=== PATIENT | male | born 1965 | race Caucasian/White ===

== ENCOUNTER 2024-07-21 04:47 | Observation (INO) ==
[2024-07-21] MEDS: fentaNYL citrate PF 100 MCG/2 ML VIAL IV STA (05:11)
--- NOTE | 2024-07-21 05:23 | Emergency Department Note ---
History of Present Illness General Chief complaint: Abdominal Pain Stated complaint: ABD PAIN Time Seen by Provider: 07/21/24 04:56 History of Present Illness Maximum Pain Intensity: 10 This 59-year-old male with alcoholism and hepatitis C presents ER complaining of severe mid abdominal pain he was diaphoretic and hypotensive. I was called to the room to see the patient. Patient is doubled over crying in pain. Patient states he drank alcohol last night. No history of withdrawal or seizures from not drinking. Patient denies fever, chills, cough, congestion, chest pain, dyspnea. No drug use. Home Medications Medication Instructions Recorded Confirmed Type multivitamin 1 tab PO QAM 09/03/18 07/21/24 History omega 3-spf-dti-fish oil 1,200 mg 1 cap PO QAM 09/03/18 07/21/24 History (144 mg-216 mg) capsule doxylamine succinate 25 mg tablet 25 mg PO HS PRN Sleep 09/30/21 07/21/24 History (Unisom (doxylamine)) melatonin 3 mg tablet 0 mg PO HS PRN Sleep 09/30/21 07/21/24 History metoprolol succinate 50 mg 50 mg PO QAM #30 tabs 09/30/21 07/21/24 Rx tablet,extended release 24 hr gabapentin 100 mg capsule 200 mg PO BID 03/09/23 07/21/24 History nortriptyline 50 mg capsule 50 mg PO HS 03/09/23 07/21/24 History rosuvastatin 10 mg tablet 20 mg PO DAILY 03/09/23 07/21/24 History Allergies Allergy/AdvReac Type Severity Reaction Status Date / Time tetracycline Allergy Unknown unknown Verified 03/09/23 14:16 Past Med/Surg History Problem List DVT prophylaxis Depression History of gastric ulcer Abnormal CT scan, colon Gallstones Tobacco dependence Abdominal pain, acute (Acute) Acute lactic acidosis (Acute) Neuropathy HTN (hypertension) GERD (gastroesophageal reflux disease) Alcohol abuse Paresthesias Colon cancer screening Encounter for pre-operative examination Medical History Hepatitis C diagnosed in 1986; no longer has Alcoholism Gastritis Alcohol withdrawal Kidney stones GERD (gastroesophageal reflux disease) Idiopathic thrombocytopenia hx of, not currently Hypertension Surgical History History of colonoscopy History of esophagogastroduodenoscopy (EGD) History of inguinal hernia repair, bilateral History of tooth extraction wisdom teeth Family History Family/Other Family history of diabetes mellitus maternal uncle Grandmother Family hx of colon cancer maternal Mother COPD (chronic obstructive pulmonary disease) Brother Bipolar disorder Brother Coronary heart disease Social History Smoking Status: Current every day smoker Tobacco Type: Cigarettes Cigarettes Per Day: 7 a day; Second Hand Exposure: No; Do You Dip or Chew Tobacco: No; Tobacco Cessation Education Requested by Patient: No Hx Alcohol Use: Yes Alcohol type: beer and wine Alcohol Intake Frequency: 4 or More x per/Week Hx Substance Use: No Preferred Language: Lao Communication Ability: Effective Graduate Research Assistant Required: No Beliefs That Will Affect Care: None marital status: Single Current Living Situation: Family Current Living Situation Comment: lives with mother current occupational status: unemployed How many Children do You have: 0 Other Information That Helps Us Care for You: No Feels Safe at Home: Yes Safety Concerns: Feels Safe At This Time Assistive Devices: Denture - Upper, Denture - Lower and Glasses Review of Systems A total of 10 systems reviewed and were otherwise negative Physical Exam Vital Signs Vital Signs - 24 hr 07/21/24 04:48 07/21/24 05:08 07/21/24 05:36 Temperature 36.4 C L Temperature Source Oral Pulse Rate 65 53 L 57 L Pulse Rate from SpO2 Sensor 57 L Pulse Rhythm Regular Pulse Strength Normal Respiratory Rate 22 12 Respiratory Effort / Characteristics Non-Labored Spontaneous Respiratory Depth Normal Respiratory Pattern Regular Blood Pressure 105/47 L 134/78 Blood Pressure Mean 66 96 Blood Pressure Position Sitting Pulse Oximetry 97 100 Oxygen Delivery Method Room Air Room Air Sepsis Recent Fever Within 48 Hours No Sepsis New/Unexplained Change in Mental Status N/A Sepsis Action Taken by Nursing No Action Required VITALS: Vitals are noted on the nurse's note and reviewed by myself. Vital signs hypotensive. GENERAL: White male pale diaphoretic screaming in pain doubled over, diaphoretic, EtOH odor SKIN: The skin was without rashes, erythema, edema, or bruising. There is no tenting of the skin. Capillary reflex less than 2 seconds. HEAD: Normocephalic atraumatic. EARS: External auditory canals clear EYES: Pupils equal round and reactive to light and accommodation. Conjunctivae without injection, sclerae without icterus. Extraocular movements intact. NOSE: Patent, no discharge. MOUTH: Mucous membranes moist. Pharynx without erythema or exudate. Uvula midline. Airway patent. Tongue does not deviate. NECK: Supple without nuchal rigidity. No lymphadenopathy. No thyromegaly. Cervical spine is nontender. No JVD. HEART: Regular rate and rhythm LUNGS: Clear to auscultation bilaterally without wheezes, rales or rhonchi. No retractions or accessory muscle use. ABDOMEN: Positive bowel sounds x 4. Normal tympanic percussion. Soft, diffuse severe tenderness, without masses or organomegaly. Weeks sign negative. No CVA tenderness MUSCULOSKELETAL: No muscle atrophy, erythema, or edema noted. NEURO: Patient was alert and oriented to person place and time. Normal sensation to light and sharp touch. No focal neurological deficits. Course Administered Medications Hydromorphone HCl (Hydromorphone Inj 0.5 Mg/0.5 Ml Syr) 0.5 mg IV Q3H PRN PRN Reason: Pain Stop: 08/04/24 09:21 Last Admin: 07/21/24 19:40 Dose: 0.5 mg Documented By: Admin: 07/21/24 15:19 Dose: 0.5 mg Documented By: Admin: 07/21/24 10:39 Dose: 0.5 mg Documented By: DENEEN Potassium Chloride 20 meq/ (Lactated Ringer's) 1,010 mls @ 125 mls/hr IV .Q8H5M [facility] Stop: 08/20/24 09:44 Last Admin: 07/21/24 19:39 Dose: 125 mls/hr Documented By: Infusion: 07/21/24 18:25 Dose: Infused Documented By: Admin: 07/21/24 10:20 Dose: 125 mls/hr Documented By: DENEEN Pantoprazole Sodium 40 mg/ (Syringe) 10 mls @ 5 mls/min IV BID [facility] Stop: 08/20/24 20:59 Last Admin: 07/21/24 21:12 Dose: 5 mls/min Documented By: RAISA Thiamine HCl 200 mg/ Sodium (Chloride) 52 mls @ 210 mls/hr IV BID MINGO Stop: 08/20/24 20:59 Last Infusion: 07/21/24 22:02 Dose: Infused Documented By: Admin: 07/21/24 21:07 Dose: 210 mls/hr Documented By: RAISA Melatonin (Melatonin 3 Mg Tab) 3 mg PO HS [facility] Stop: 08/20/24 20:59 Last Admin: 07/21/24 21:10 Dose: 3 mg Documented By: RAISA Metoprolol Succinate (Metoprolol Succ 50mg Ext Rel Tab) 50 mg PO QAM [facility] Stop: 08/20/24 09:44 Last Admin: 07/21/24 10:28 Dose: Not Given Documented By: DENEEN Miscellaneous (Remove Nicoderm Patch) 1 each N/A DAILY@0859 [facility] Stop: 08/20/24 09:43 Last Admin: 07/21/24 10:28 Dose: Not Given Documented By: DENEEN Multivitamins (Multivitamin Tab) [facility] Stop: 08/20/24 09:44 Last Admin: 07/21/24 10:28 Dose: 1 tab Documented By: DENEEN Nicotine (Nicotine 14 Mg/24 Hr Patch) 1 patch TD [facility] Stop: 08/20/24 09:44 Last Admin: 07/21/24 10:27 Dose: 1 patch Documented By: DENEEN Nortriptyline HCl (Nortriptyline Hcl 25 Mg Cap) 50 mg PO [facility] Stop: 08/20/24 20:59 Last Admin: 07/21/24 21:10 Dose: 50 mg Documented By: RAISA Discontinued Medications Al Hydrox/Mg Hydrox/Simethicone (Aluminum/Magnesium Susp 30 Ml Udc) 30 ml PO NOW STA Stop: 07/21/24 08:02 Last Admin: 07/21/24 08:28 Dose: 30 ml Documented By: DENEEN Fentanyl Citrate (Fentanyl Citrate Pf 100 Mcg/2 Ml Vial) 50 mcg IV NOW STA Stop: 07/21/24 05:06 Last Admin: 07/21/24 05:11 Dose: 50 mcg Documented By: MISHA Fentanyl Citrate (Fentanyl Citrate Pf 100 Mcg/2 Ml Vial) 50 mcg IV Q15M PRN PRN Reason: Pain Stop: 08/04/24 05:06 Last Admin: 07/21/24 07:31 Dose: 50 mcg Documented By: Admin: 07/21/24 06:08 Dose: 50 mcg Documented By: MISHA Gabapentin (Gabapentin 600 Mg Tab) 1,200 mg PO NOW ONE Stop: 07/21/24 10:01 Last Admin: 07/21/24 10:28 Dose: 1,200 mg Documented By: DENEEN Gabapentin (Gabapentin 600 Mg Tab) 600 mg PO Q6H [facility] Stop: 07/21/24 22:01 Last Admin: 07/21/24 21:10 Dose: 600 mg Documented By: Admin: 07/21/24 16:52 Dose: 600 mg Documented By: IGOR Pantoprazole Sodium 40 mg/ (Syringe) 10 mls @ 5 mls/min IV NOW ONE Stop: 07/21/24 05:08 Last Admin: 07/21/24 06:11 Dose: 5 mls/min Documented By: MISHA Famotidine (Pepcid 20mg Iv Push) 20 mg in 5 mls @ 2.5 mls/min IV NOW STA Stop: 07/21/24 05:08 Last Admin: 07/21/24 05:34 Dose: 2.5 mls/min Documented By: MISHA Sodium Chloride (Nss) 1,000 mls @ 999 mls/hr IV .Q1H1M ONE Stop: 07/21/24 06:07 Last Infusion: 07/21/24 06:23 Dose: Infused Documented By: Admin: 07/21/24 05:34 Dose: 999 mls/hr Documented By: MISHA Lactated Ringer's (Lr) 1,000 mls @ 999 mls/hr IV .Q1H1M ONE Stop: 07/21/24 06:07 Last Infusion: 07/21/24 06:23 Dose: Infused Documented By: Admin: 07/21/24 05:35 Dose: 999 mls/hr Documented By: MISHA Multivitamins 10 ml/ Thiamine HCl 100 mg/ Folic Acid 1 mg/Sodium Chloride 1,011.2 mls @ 500 mls/hr IV .Q2H2M ONE Stop: 07/21/24 07:08 Last Infusion: 07/21/24 08:46 Dose: Infused Documented By: Admin: 07/21/24 06:12 Dose: 500 mls/hr Documented By: MISHA Potassium Chloride (K Navin / Wtr) 10 meq in 100 mls @ 100 mls/hr IV Q1H [facility] Stop: 07/21/24 09:44 Last Infusion: 07/21/24 10:55 Dose: Infused Documented By: Admin: 07/21/24 09:43 Dose: 100 mls/hr Documented By: Infusion: 07/21/24 09:29 Dose: Infused Documented By: Admin: 07/21/24 08:29 Dose: 100 mls/hr Documented By: Infusion: 07/21/24 08:29 Dose: Infused Documented By: Admin: 07/21/24 07:32 Dose: 100 mls/hr Documented By: Infusion: 07/21/24 07:12 Dose: Infused Documented By: Admin: 07/21/24 06:12 Dose: 100 mls/hr Documented By: MISHA Ioversol (Optiray 320 125ml) 119 ml IV ONCE ONE Stop: 07/21/24 05:39 Last Admin: 07/21/24 05:38 Dose: 119 ml Documented By: SANDY Ondansetron HCl (Ondansetron Inj 2 Mg/Ml 2 Ml Vial) 4 mg IV NOW STA Stop: 07/21/24 05:08 Last Admin: 07/21/24 05:35 Dose: 4 mg Documented By: MISHA Medical Decision Making Medical Records Attestation: I reviewed the patient's medical records. Home Medications Current Medication List: was personally reviewed by sc Laboratory Data Attestation: I reviewed the patient's lab results. 07/21/24 05:07 07/21/24 14:10 Lab Results 07/21/24 Range/Units 05:07 WBC 9.17 (4.8-10.8) K/ul RBC 4.51 L (4.70-6.10) M/uL Hgb 14.0 (14.0-18.0) g/dl Hct 40.7 L (42.0-52.0) % MCV 90.2 (80.0-100.0) fL MCH 31.0 (25.0-34.0) pg MCHC 34.4 (32.0-36.0) g/dL RDW Std Deviation 39.2 (36.4-46.3) fL RDW Coeff of Augustus 11.9 (11.5-14.5) % Plt Count 260 (130-400) K/uL MPV 8.5 L (9.4-12.4) fL Immature Gran % (Auto) 0.3 % Neut % (Auto) 23.7 % Lymph % (Auto) 61.0 % Amite % (Auto) 11.6 % Eos % (Auto) 2.5 % Baso % (Auto) 0.9 % Neut # (Auto) 2.18 (1.40-6.50) K/uL Lymph # (Auto) 5.59 H (1.20-3.40) K/uL [place] # (Auto) 1.06 H (0.11-0.59) K/uL Eos # (Auto) 0.23 (0.00-0.50) K/uL Baso # (Auto) 0.08 (0.00-0.20) K/uL Immature Gran # (Auto) 0.03 (0.01-0.20) K/uL Sodium 137 (136-145) mmol/L Potassium 3.1 L (3.5-5.1) mmol/L Chloride 102 (98-107) mmol/L Carbon Dioxide 20 L (21-32) mmol/L Anion Gap 15 H (3-11) BUN 16 (6-23) mg/dl Creatinine 0.82 (0.6-1.4) mg/dl Est Cr Clr Drug Dosing 81.2 ml/min Est GFR ( Amer) 112.2 ml/min Est GFR (Non-Af Amer) 96.8 ml/min BUN/Creatinine Ratio 19.5 (10-20) Glucose 140 H (70-99(Fasting)) mg/dl Lactate 4.9 H* (0.4-2.0) mmol/L Calcium 9.6 (8.6-10.3) mg/dl Magnesium 2.0 (1.7-2.4) mg/dl Total Bilirubin 0.3 (0.2-1.0) mg/dl AST 49 H (13-39) U/L ALT 46 (7-52) U/L Alkaline Phosphatase 70 (34-104) U/L Troponin I High Sens 3.5 (0-20) pg/ml Total Protein 6.9 (6.0-8.3) gm/dl Albumin 4.4 (3.4-5.0) gm/dl Globulin 2.5 (2.5-4.0) gm/dl Albumin/Globulin Ratio 1.8 (0.9-2) Lipase 23 (11-82) U/L Ethyl Alcohol mg/dL 28.9 H (<10.0) mg/dl Imaging Data Attestation: I personally reviewed and interpreted this imaging study as follows: Radiologist's Impression: Abdomen/Pelvis CT 07/21/24 04:57 Exam(s): CT ABDOMEN + PELVIS With Contrast IV Amt: 119 ml opti 320 EXAM: CT Abdomen and Pelvis With Intravenous Contrast CLINICAL HISTORY: Reason for exam: severe mid abd pain, hep C, etoh. TECHNIQUE: Axial computed tomography images of the abdomen and pelvis with intravenous contrast. Automated exposure control was utilized for the study. A dose lowering technique was utilized adhering to the principles of ALARA. CONTRAST: Patient received 119 ml opti 320 of IV contrast COMPARISON: 01/22/2019. FINDINGS: ABDOMEN: Liver: The liver is enlarged and of diffuse decreased attenuation Gallbladder and bile ducts: There are gallstones noted within the gallbladder.. No ductal dilation. Pancreas: No mass. No ductal dilation. Spleen: No splenomegaly. Adrenals: No mass. Kidneys and ureters: . No solid mass. No hydronephrosis. Stomach and bowel: There is air and fluid within the stomach. There is air, fluid and stool noted in the colon.. There appears to be thickening of the wall of the proximal ascending colon PELVIS: Appendix: No findings to suggest acute appendicitis. Bladder: No Calculi are noted within the bladder. Reproductive: Unremarkable as visualized. ABDOMEN and PELVIS: Intraperitoneal space: No free air. No significant fluid collection. There are postoperative changes in the pelvis. Bones/joints: There are mild degenerative changes in the spine.. Soft tissues: Unremarkable. Vasculature: No abdominal aortic aneurysm. Lymph nodes: . No enlarged lymph nodes. IMPRESSION: There appears to be thickening of the wall of the proximal ascending colon. This may be due to under distention. Cannot exclude colitis. Cholelithiasis. The liver is enlarged and of diffuse decreased attenuation which may be due to fatty infiltration and/or hepatocellular disease. Electronically signed by: Hesham Santos MD 07/21/24 06:13 AM Chest CTA 07/21/24 05:07 Exam(s): CTA CHEST EXAM: CT Angiography Chest With Intravenous Contrast CLINICAL HISTORY: Reason for exam: PE. TECHNIQUE: Axial computed tomographic angiography images of the chest with intravenous contrast. Automated exposure control was utilized for the study. A dose lowering technique was utilized adhering to the principles of ALARA. MIP reconstructed images were created and reviewed. COMPARISON: No relevant prior studies available. FINDINGS: Pulmonary arteries: No pulmonary embolism is seen. Aorta: No thoracic aortic aneurysm or dissection. Lungs: There is some dependent atelectasis.. Pleural space: No significant effusion. No pneumothorax. Heart: The heart is normal in size.. Bones/joints: There are degenerative changes in the spine.. Soft tissues: Unremarkable. Lymph nodes: . No enlarged lymph nodes. Additional: There are gallstones within the gallbladder. IMPRESSION: No pulmonary embolism is seen. Cholelithiasis. Electronically signed by: Hesham Santos MD 07/21/24 06:06 AM [facility] Narrative Prior records/ancillary studies reviewed. Triage Nursing notes reviewed. Additional history obtained from nursing. The patient's history was concerning for abdominal pain. Differential diagnosis: Etiologies such as appendicitis, diverticulitis, PUD, biliary pathology, UTI, pancreatitis, obstruction, mesenteric ischemia, aortic pathology, infections, inflammatory bowel disease, renal colic, as well as others were entertained. Physical examination findings: As above. ER treatment provided: An order was placed for continuous cardiac monitoring. The monitor shows a rate of 50-100 with a sinus rhythm per my Independent interpretation. I-STAT was ordered. 2 lines were placed. Patient was given fentanyl Protonix Pepcid and Zofran. Banana bag was ordered, potassium was ordered Limited Point of Care FAST Ultrasound performed by me: Indication: Rule out perforation Findings: Limited cardiac ultrasonography via subxiphoid and parasternal long view showed cardiac wall motion activity, no pericardial fluid, no tamponade. Limited chest ultrasound revealed bilateral lung sliding. Limited abdominal ultrasound revealed no free fluid within Barone's pouch, splenorenal space, or the pouch of Jeffery. Impression: Negative FAST exam. On reassessment the patient felt better. Diagnostics interpreted by me: ECG: Ordered for severe pain EKG: Poor baseline, normal sinus, normal intervals, no acute ST-T wave changes, rate of 50. Impression sinus bradycardia poor baseline independently interpreted by myself The labs Independently Interpreted by myself revealed stable H&H, normal lipase, negative troponin Hypokalemia Elevated lactic and patient was hydrated as above Imaging studies: CTs reviewed and read by radiology as above Chest x-ray with no acute consolidation, pneumothorax or free air per my independent interpretation Consultation: A consultation was placed with the hospitalist. The case was discussed and diagnostics were reviewed. The patient was evaluated in the ER for further treatment. Exam and history seem consistent with lactic acidosis with severe abdominal pain. Unclear etiology for the cause of the abdominal pain. Patient is an alcoholic. He was hydrated as above. 2 lines were placed. Banana bag was ordered. He was given Pepcid, Protonix and Zofran. He was given fentanyl for the pain. He was still in severe amount of pain. Imaging was read as negative for severe findings by radiology. No pancreatitis. This could be early pancreatitis or a n ulcer. By the evaluation outlined above emergent etiologies such as appendicitis, diverticulitis, UTI, obstruction, mesenteric ischemia, aortic pathology, infections, inflammatory bowel disease, renal colic, as well as others were deemed relatively unlikely. The pt informed about the findings as listed above. All questions were answered and pleased with the treatment. The chart was completed utilizing [employer] Speech voice recognition software. Grammatical errors, random word insertions, pronoun errors, and incomplete sentences are an occassional consequence of this system due to software limitations, ambient noise, and hardware issues. Any formal questions or concerns about the content, text, or information contained within the body of this dictation should be directly addressed to the physician assistant to the dean for clarification. Impression & Plan Acute lactic acidosis, Abdominal pain, acute Discharge Plan Visit Data Chief Complaint: Abdominal Pain Stated Complaint: ABD PAIN ED Provider: Justo Evans ED Midlevel Provider: Komal Gage Discharge Problem: Acute lactic acidosis, Abdominal pain, acute Patient Disposition: Admitted As Inpatient Condition: Fair Discharge Instructions Interventions: ED Discharge Assessment Last Done: 07/21/24 09:22
[2024-07-21 05:28] LABS: Hematocrit (blood only) 40.7 % (42.0-52.0); Mean Corpuscular Hgb Conc 34.4 g/dL (32.0-36.0); Mean Corpuscular Volume 90.2 fL (80.0-100.0); Mean Platelet Volume 8.5 fL (9.4-12.4); Platelet Count 260 K/uL (130-400); RDW Coefficient of Variation 11.9 % (11.5-14.5); RDW Standard Deviation 39.2 fL (36.4-46.3); Red Blood Count 4.51 M/uL (4.70-6.10); White Blood Count 9.17 K/ul (4.8-10.8)
[2024-07-21] MEDS: SODIUM CHLORIDE 0.9% 1,000 ML IV ONE (05:34)
[2024-07-21] MEDS: FAMOTIDINE 20MG IV PUSH 20 MG/5 ML SYR IV STA (05:34)
[2024-07-21] MEDS: LACTATED RINGER'S 1,000 ML IV ONE (05:35)
[2024-07-21] MEDS: ONDANSETRON INJ 2 MG/ML 2 ML VIAL IV STA (05:35)
[2024-07-21] MEDS: OPTIRAY 320 125ml IV ONE (05:38)
[2024-07-21 05:40] LABS: Albumin Globulin Ratio 1.8 (0.9-2); Albumin Level 4.4 gm/dl (3.4-5.0); BUN Creatinine Ratio 19.5 (10-20); Bilirubin,Total 0.3 mg/dl (0.2-1.0); Calcium 9.6 mg/dl (8.6-10.3); Creatinine Clr Calc Pharmacy 81.2 ml/min; Est GFR (African American) 112.2 ml/min; Est GFR (Non-African American) 96.8 ml/min; Globulin 2.5 gm/dl (2.5-4.0); Potassium 3.1 mmol/L (3.5-5.1); Total Protein 6.9 gm/dl (6.0-8.3)
[2024-07-21 05:46] LABS: Troponin I High Sensitivity 3.5 pg/ml (0-20)
[2024-07-21 05:47] LABS: Basophils # (auto) 0.08 K/uL (0.00-0.20); Basophils % (auto) 0.9 %; Eosinophils # (auto) 0.23 K/uL (0.00-0.50); Eosinophils % (auto) 2.5 %; Immature Granulocytes # (auto) 0.03 K/uL (0.01-0.20); Immature Granulocytes % (auto) 0.3 %; Lymphocytes # (auto) 5.59 K/uL (1.20-3.40); Monocytes # (auto) 1.06 K/uL (0.11-0.59); Monocytes % (auto) 11.6 %; Neutrophils # (auto) 2.18 K/uL (1.40-6.50); Neutrophils % (auto) 23.7 %
--- NOTE | 2024-07-21 06:07 | CT Scan Report ---
Exam(s): CTA CHEST EXAM: CT Angiography Chest With Intravenous Contrast CLINICAL HISTORY: Reason for exam: PE. TECHNIQUE: Axial computed tomographic angiography images of the chest with intravenous contrast. Automated exposure control was utilized for the study. A dose lowering technique was utilized adhering to the principles of ALARA. MIP reconstructed images were created and reviewed. COMPARISON: No relevant prior studies available. FINDINGS: Pulmonary arteries: No pulmonary embolism is seen. Aorta: No thoracic aortic aneurysm or dissection. Lungs: There is some dependent atelectasis.. Pleural space: No significant effusion. No pneumothorax. Heart: The heart is normal in size.. Bones/joints: There are degenerative changes in the spine.. Soft tissues: Unremarkable. Lymph nodes: . No enlarged lymph nodes. Additional: There are gallstones within the gallbladder. IMPRESSION: No pulmonary embolism is seen. Cholelithiasis. Electronically signed by: Hesham Santos MD 07/21/24 06:06 AM
[2024-07-21] MEDS: fentaNYL citrate PF 100 MCG/2 ML VIAL IV PRN (06:08)
[2024-07-21] MEDS: PANTOprazole 40 MG in SYRINGE 0 ML IV ONE (06:11)
[2024-07-21] MEDS: MULTI-VITAMIN INFUSION 10 ML, THIAMINE HCL 100 MG, FOLIC ACID 1 MG in SODIUM CHLORIDE 0... IV ONE (06:12)
[2024-07-21] MEDS: POTASSIUM CHLORIDE / WTR 10 MEQ/100 ML PLCT IV SCH (06:12)
--- NOTE | 2024-07-21 06:14 | CT Scan Report ---
Exam(s): CT ABDOMEN + PELVIS With Contrast IV Amt: 119 ml opti 320 EXAM: CT Abdomen and Pelvis With Intravenous Contrast CLINICAL HISTORY: Reason for exam: severe mid abd pain, hep C, etoh. TECHNIQUE: Axial computed tomography images of the abdomen and pelvis with intravenous contrast. Automated exposure control was utilized for the study. A dose lowering technique was utilized adhering to the principles of ALARA. CONTRAST: Patient received 119 ml opti 320 of IV contrast COMPARISON: 01/22/2019. FINDINGS: ABDOMEN: Liver: The liver is enlarged and of diffuse decreased attenuation Gallbladder and bile ducts: There are gallstones noted within the gallbladder.. No ductal dilation. Pancreas: No mass. No ductal dilation. Spleen: No splenomegaly. Adrenals: No mass. Kidneys and ureters: . No solid mass. No hydronephrosis. Stomach and bowel: There is air and fluid within the stomach. There is air, fluid and stool noted in the colon.. There appears to be thickening of the wall of the proximal ascending colon PELVIS: Appendix: No findings to suggest acute appendicitis. Bladder: No Calculi are noted within the bladder. Reproductive: Unremarkable as visualized. ABDOMEN and PELVIS: Intraperitoneal space: No free air. No significant fluid collection. There are postoperative changes in the pelvis. Bones/joints: There are mild degenerative changes in the spine.. Soft tissues: Unremarkable. Vasculature: No abdominal aortic aneurysm. Lymph nodes: . No enlarged lymph nodes. IMPRESSION: There appears to be thickening of the wall of the proximal ascending colon. This may be due to under distention. Cannot exclude colitis. Cholelithiasis. The liver is enlarged and of diffuse decreased attenuation which may be due to fatty infiltration and/or hepatocellular disease. Electronically signed by: Hesham Santos MD 07/21/24 06:13 AM
--- NOTE | 2024-07-21 07:10 | History & Physical Report ---
Date of Service July 21, 2024 Assessment & Plan (1) Abdominal pain, acute: Plan: Pain is upper abdomen. Started acutely about 0400 this morning. No nausea/emesis. CT abd/pelvis with gallstones & thickening of the transverse colon. Poor response to IV narcotics, IV PPI, and IV H2 rohit in the ER. Differential - PUD vs alcoholic gastritis vs acute pancreatitis (lipase wnl, pancreas normal on CT imaging) vs ischemia vs biliary pathology vs colitis vs non-GI (cardiac, etc). Plan - * GI cocktail x 1 now * IV PPI twice daily * NPO status * generous IV fluids * IV dilaudid prn * STAT RUQ U/S - r/o acute cholecystitis * GI consultation requested for consideration of EGD, especially if RUQ U/S is negative * repeat LFTs & Lipase in am * follow serial lactates to ensure resolution/normalization * due to report of diarrhea check a stool BioFire (2) Acute lactic acidosis: Plan: Etiology? Ischemic gut/ischemic event to abdomen? Due to colitis? Other? Lactate is improving with fluid resuscitation. Cont IVF, check serial lactates. (3) HTN (hypertension): Plan: Cont meto succ daily (4) GERD (gastroesophageal reflux disease): Plan: IV PPI twice daily GI cocktail x 1 (see #1 above) (5) Alcohol abuse: Plan: Records indicate heavy beer consumption. He reports no beer in 1 week but he did drink wine on 07/20. Alcohol level <50 at presentation today. Records also indicate past h/o alcohol withdrawal. Thus - * AWSS protocol * symptom-triggered ativan prn * gabapentin load then taper * IV thiamine 200mg BID * IV folic acid 1mg daily * MVI daily * telemetry * consider Naltrexone in the future - will public relations counselor him on options later in the stay (6) Tobacco dependence: Plan: Nicoderm patch 14mg/24 hours. (7) Gallstones: Plan: Check RUQ u/s - r/o acute cholecystitis as the cause of his presentation. Recheck LFTs in am. (8) Abnormal CT scan, colon: Plan: ?transverse colitis? He does report diarrhea and some BRBPR over the last few days. Check stool biofire. (9) History of gastric ulcer: Plan: noted GI consult for consideration of EGD in light of his presenting symptoms PPI IV BID (10) Depression: Plan: Cont nortriptylein daily (11) DVT prophylaxis: Plan: Hold off on chemical means at this time in the event he needs a procedure next 24 hours Plan ?history of narcotic misuse? --> check urine drug screen History of Present Illness Chief Complaint: abdominal pain Primary Care Provider: Miguelangel Mcdonald MD 59yo male with long-standing alcoholism, prior h/o Hepatitis C, HTN, tobacco dependence, gastric ulcer in the early , and anxiety/depression presents from home after waking up at ~0400 this morning with severe upper abdominal pain. The pain has been constant since it started. It is radiating to the low back. Denies any pain in the lower quadrants. Denies nausea. Denies vomiting or hematemesis. He reports a few days of loose stool. No melena. He does mention seeing some bright red blood with wiping. He attributes this to straining at stool. He does have a history of hemorrhoids. Despite multiple doses of fentanyl IV in the ER he reports ongoing severe pain. He denies any episodic abdominal pain over the last few weeks. His last meal was 07/20 in the evening when he consumed crab legs & 1 glass of wine. He reports having stopped drinking alcohol about 1 week ago. Typically drinks 1 6-pack of beer/day. The glass of wine was the first etoh beverage since stopping beer consumption 1 week ago. He denies history of alcohol withdrawal, but his record clearly documents past history of shakes/withdrawal symptoms with alcohol cessation. Denies any current narcotic usage at home. He continues to smoke <1/2 pack of tobacco daily. Meds given in ER -- pepcid IV, fentanyl 150mcg in total, LR bolus, NS bolus, zofran, banana bag, protonix IV Allergies Allergy/AdvReac Type Severity Reaction Status Date / Time tetracycline Allergy Unknown unknown Verified 03/09/23 14:16 Home Medications Medication Instructions Recorded Confirmed Type multivitamin 1 tab PO QAM 09/03/18 07/21/24 History omega 2-tko-mrb-fish oil 1,200 mg 1 cap PO QAM 09/03/18 07/21/24 History (144 mg-216 mg) capsule doxylamine succinate 25 mg tablet 25 mg PO HS PRN Sleep 09/30/21 07/21/24 History (Unisom (doxylamine)) melatonin 3 mg tablet 0 mg PO HS PRN Sleep 09/30/21 07/21/24 History metoprolol succinate 50 mg 50 mg PO QAM #30 tabs 09/30/21 07/21/24 Rx tablet,extended release 24 hr gabapentin 100 mg capsule 200 mg PO BID 03/09/23 07/21/24 History nortriptyline 50 mg capsule 50 mg PO HS 03/09/23 07/21/24 History rosuvastatin 10 mg tablet 20 mg PO DAILY 03/09/23 07/21/24 History Past Med/Surg History Problem List DVT prophylaxis Depression History of gastric ulcer Abnormal CT scan, colon Gallstones Tobacco dependence Abdominal pain, acute (Acute) Acute lactic acidosis (Acute) Neuropathy HTN (hypertension) GERD (gastroesophageal reflux disease) Alcohol abuse Paresthesias Colon cancer screening Encounter for pre-operative examination Medical History Hepatitis C diagnosed in 1986; no longer has Alcoholism Gastritis Alcohol withdrawal Kidney stones GERD (gastroesophageal reflux disease) Idiopathic thrombocytopenia hx of, not currently Hypertension Surgical History History of colonoscopy History of esophagogastroduodenoscopy (EGD) History of inguinal hernia repair, bilateral History of tooth extraction wisdom teeth Family History Family/Other Family history of diabetes mellitus maternal uncle Grandmother Family hx of colon cancer maternal Mother COPD (chronic obstructive pulmonary disease) Brother Bipolar disorder Brother Coronary heart disease Social History Smoking Status: Current every day smoker Tobacco Type: Cigarettes Cigarettes Per Day: 7 a day; Second Hand Exposure: No; Do You Dip or Chew Tobacco: No; Tobacco Cessation Education Requested by Patient: No Hx Alcohol Use: Yes Alcohol type: beer and wine Alcohol Intake Frequency: 4 or More x per/Week Hx Substance Use: No Preferred Language: Slovak Communication Ability: Effective Route Cdl Driver Required: No Beliefs That Will Affect Care: None marital status: Single Current Living Situation: Family Current Living Situation Comment: lives with mother current occupational status: unemployed How many Children do You have: 0 Other Information That Helps Us Care for You: No Feels Safe at Home: Yes Safety Concerns: Feels Safe At This Time Assistive Devices: Denture - Upper, Denture - Lower and Glasses Review of Systems Review of Systems: gen - no fevers or chills; no recent weight loss; no had been eating fine of late eyes - no changes in vision HENT - runny nose (Chronic); recent L ear pain CV - no chest pain, no edema of legs pulm - no cough, no dyspnea, no congestion GI - abdominal pain but no N/V; recent diarrhea; some mild BRBPR with wiping only - no dysuria neuro - chronic headaches for several months, they "move all over" the head; no paresthesias skin - no rash endo - no diabetes psych - admits to anxiety & depression Physical Exam Physical Exam: gen - writhing in pain/uncomfortable, awake, alert, no evidence of withdrawal eyes - PERRL HENT - TMs clear b/l, canals clear; mouth - poor dentition, MMM; smell of alcohol neck - no JVD, no lymph nodes, no thyroid masses heart - RRR, s1 s2, no murmur lungs - CTA b/l abd - soft, ND, BS+; exquisitely tender RUQ, epigastric region; all tenderness is above the umbilicus; no masses; no peritoneal signs ext - no edema, pulses feet 2+ b/l neuro - strength 5/5 x 4 exts; DTRs 2+ b/l upper/lower exts psych - awake, alert, oriented x 3 skin - no rash Results & Data Results & Data Vital Signs (Past 12 Hours) Vital Signs Temp Pulse Resp BP Pulse Ox O2 Del Method 07/21/24 05:36 57 L 12 134/78 100 Room Air 07/21/24 05:08 53 L 07/21/24 04:48 36.4 C L 65 22 105/47 L 97 Room Air Laboratory Results Laboratory Results - last 24 hr 07/21/24 07/21/24 05:07 08:08 WBC 9.17 RBC 4.51 L Hgb 14.0 Hct 40.7 L MCV 90.2 MCH 31.0 MCHC 34.4 RDW Std Deviation 39.2 RDW Coeff of [place] 11.9 Plt Count 260 MPV 8.5 L Immature Gran % (Auto) 0.3 Neut % (Auto) 23.7 Lymph % (Auto) 61.0 [place] % (Auto) 11.6 Eos % (Auto) 2.5 Baso % (Auto) 0.9 Neut # (Auto) 2.18 Lymph # (Auto) 5.59 H [place] # (Auto) 1.06 H Eos # (Auto) 0.23 Baso # (Auto) 0.08 Immature Gran # (Auto) 0.03 Sodium 137 Potassium 3.1 L Chloride 102 Carbon Dioxide 20 L Anion Gap 15 H BUN 16 Creatinine 0.82 Est Cr Clr Drug Dosing 81.2 Est GFR ( Amer) 112.2 Est GFR (Non-Af Amer) 96.8 BUN/Creatinine Ratio 19.5 Glucose 140 H Lactate 4.9 H* 2.8 H* Calcium 9.6 Magnesium 2.0 Total Bilirubin 0.3 AST 49 H ALT 46 Alkaline Phosphatase 70 Troponin I High Sens 3.5 Total Protein 6.9 Albumin 4.4 Globulin 2.5 Albumin/Globulin Ratio 1.8 Lipase 23 Ethyl Alcohol mg/dL 28.9 H Diagnostic Findings Abdomen/Pelvis CT 07/21/24 04:57 Exam(s): CT ABDOMEN + PELVIS With Contrast IV Amt: 119 ml opti 320 EXAM: CT Abdomen and Pelvis With Intravenous Contrast CLINICAL HISTORY: Reason for exam: severe mid abd pain, hep C, etoh. TECHNIQUE: Axial computed tomography images of the abdomen and pelvis with intravenous contrast. Automated exposure control was utilized for the study. A dose lowering technique was utilized adhering to the principles of ALARA. CONTRAST: Patient received 119 ml opti 320 of IV contrast COMPARISON: 01/22/2019. FINDINGS: ABDOMEN: Liver: The liver is enlarged and of diffuse decreased attenuation Gallbladder and bile ducts: There are gallstones noted within the gallbladder.. No ductal dilation. Pancreas: No mass. No ductal dilation. Spleen: No splenomegaly. Adrenals: No mass. Kidneys and ureters: . No solid mass. No hydronephrosis. Stomach and bowel: There is air and fluid within the stomach. There is air, fluid and stool noted in the colon.. There appears to be thickening of the wall of the proximal ascending colon PELVIS: Appendix: No findings to suggest acute appendicitis. Bladder: No Calculi are noted within the bladder. Reproductive: Unremarkable as visualized. ABDOMEN and PELVIS: Intraperitoneal space: No free air. No significant fluid collection. There are postoperative changes in the pelvis. Bones/joints: There are mild degenerative changes in the spine.. Soft tissues: Unremarkable. Vasculature: No abdominal aortic aneurysm. Lymph nodes: . No enlarged lymph nodes. IMPRESSION: There appears to be thickening of the wall of the proximal ascending colon. This may be due to under distention. Cannot exclude colitis. Cholelithiasis. The liver is enlarged and of diffuse decreased attenuation which may be due to fatty infiltration and/or hepatocellular disease. Electronically signed by: Hesham Santos MD 07/21/24 06:13 AM Chest CTA 07/21/24 05:07 Exam(s): CTA CHEST EXAM: CT Angiography Chest With Intravenous Contrast CLINICAL HISTORY: Reason for exam: PE. TECHNIQUE: Axial computed tomographic angiography images of the chest with intravenous contrast. Automated exposure control was utilized for the study. A dose lowering technique was utilized adhering to the principles of ALARA. MIP reconstructed images were created and reviewed. COMPARISON: No relevant prior studies available. FINDINGS: Pulmonary arteries: No pulmonary embolism is seen. Aorta: No thoracic aortic aneurysm or dissection. Lungs: There is some dependent atelectasis.. Pleural space: No significant effusion. No pneumothorax. Heart: The heart is normal in size.. Bones/joints: There are degenerative changes in the spine.. Soft tissues: Unremarkable. Lymph nodes: . No enlarged lymph nodes. Additional: There are gallstones within the gallbladder. IMPRESSION: No pulmonary embolism is seen. Cholelithiasis. Electronically signed by: Hesham Santos MD 07/21/24 06:06 AM EKG - my reading - sinus bradycardia, nonspecific ST changes anterior leads PG Care Time/CCT Total # of Minutes Spent Total Time Spent with Patient: Total time spent is greater than 50% in coordination of care (as documented) at patient's floor/unit and/or counseling patient: Coding Level of Care Code 74936 INT INP/OBS CARE 3/75MIN Diagnoses Abdominal pain, acute R10.9 Acute lactic acidosis E87.21 HTN (hypertension) I10 GERD (gastroesophageal reflux disease) K21.9 Alcohol abuse F10.10 Tobacco dependence F17.[address] scan, colon R93.3 History of gastric ulcer Z87.19 Depression F32.9 DVT prophylaxis Z29.9
[2024-07-21] MEDS: ALUMINUM/MAGNESIUM SUSP 30 ML UDC PO STA (08:28)
--- NOTE | 2024-07-21 08:35 | XRay Report ---
XR chest 1V portable CLINICAL HISTORY: severe upper abd pain TECHNIQUE: Single frontal radiograph of the chest was obtained. Comparison: Comparison is made to chest radiograph 03/09/2023 FINDINGS: No lines and tubes are seen. The cardiomediastinal silhouette is normal. The lungs are clear. No evid ence of pleural effusion or pneumothorax. IMPRESSION: No acute chest disease. ACT 112: Negative or not required by law. Electronically signed by: Vick Reno M.D. 07/21/2024 8:34 AM
--- NOTE | 2024-07-21 09:18 | Ultrasound Report ---
US gallbladder CLINICAL HISTORY: gallstones, severe abd pain; ro cholecystitis TECHNIQUE: Multiple real-time sonographic images of the right upper quadrant were obtained. Comparison: Comparison is made to CT abdomen pelvis 07/21/2024 FINDINGS: The liver is diffusely echogenic in appearance with poor ultrasound penetration, with normal contour, which is consistent with fatty infiltration. No focal mass lesions are seen. No intrahepatic duct al dilatation is seen. Linear hyperechoic foci with posterior shadowing are identified layering depe ndently within the gallbladder, which are consistent with gallstones. The gallbladder wall is not thi ckened. There is no pericholecystic fluid present. A sonographic Weeks's sign was not elicited by t [employer]. The common duct measures 0.4 cm in diameter at the level of the hepatic artery. The visualized portions of the pancreas appear normal. The right kidney shows normal echogenicity, cortical thickness and renal contour. The right kidney sh ows no evidence of hydronephrosis or mass. No ascites or free fluid is seen in Barone's pouch. IMPRESSION: 1. Hepatic steatosis. 2. Cholelithiasis without cholecystitis. ACT 112: Negative or not required by law. Electronically signed by: Vick Reno M.D. 07/21/2024 9:16 AM
[2024-07-21] MEDS ORDERED: GABAPENTIN 1200MG ALCOHOL WITHDRAWAL LOAD PO STA (09:22)
[2024-07-21] MEDS ORDERED: LORazepam 2 MG/1 ML VIAL IV PRN (09:22)
[2024-07-21] MEDS ORDERED: ONDANSETRON INJ 2 MG/ML 2 ML VIAL IV PRN (09:22)
[2024-07-21] MEDS: POTASSIUM CHLORIDE 20 MEQ in LACTATED RINGER'S 1,000 ML IV SCH (10:20)
--- NOTE | 2024-07-21 10:21 | Gastrointestinal Consultation ---
Date of Consultation July 21, 2024 Assessment & Plan (1) Abdominal pain, acute: While this could be ulcer disease the abupt onset and the severity of the pain is a little much for routine ulcer without complication. The severity of the pain brings biliary colic into the picture. I don't get the idea he has an acute colitis causing this. Not sure what to make of this thickening of his ascending colon. I will tentatively set him up for EGD in the morning but would consult general surgery as I doubt this is ulcer disease. History of Present Illness Reason for Consultation: abdominal pain Attending Physician: Dominic Nichols MD History of Present Illness 59 year old man who was woken from sleep with severe mid to upper abdominal pain with radiation to the back. There was no nausea or vomiting with it. He has had relief but only related to pain medications since he has been in ER. Has had no pain in the preceding days. His stomach is not usually a problem for him. He has had some constipation but has had a large BM since being here. He had an ulcer in the early diagnosed by EGD but he says the pain was not nearly as bad as this. He had a colonoscopy by Dr. Person several years ago but does not see GI on a regular basis. Is a fairly heavy drinker but stopped last Monday until he had a glass of wine last night. CT shows gallstones. Ultrasound no signs of acute cholecystitis. ? thickening in ascending colon on CT. Allergies Allergy/AdvReac Type Severity Reaction Status Date / Time tetracycline Allergy Unknown unknown Verified 03/09/23 14:16 Home Medications Medication Instructions Recorded Confirmed Type multivitamin 1 tab PO QAM 09/03/18 03/09/23 History omega 9-hro-cii-fish oil 1,200 mg 1 cap PO QAM 09/03/18 03/09/23 History (144 mg-216 mg) capsule doxylamine succinate 25 mg tablet 25 mg PO HS PRN Sleep 09/30/21 03/09/23 History (Unisom (doxylamine)) melatonin 3 mg tablet 0 mg PO HS PRN Sleep 09/30/21 03/09/23 History metoprolol succinate 50 mg 50 mg PO QAM #30 tabs 09/30/21 03/09/23 Rx tablet,extended release 24 hr gabapentin 100 mg capsule 200 mg PO BID 03/09/23 03/09/23 History nortriptyline 50 mg capsule 50 mg PO HS 03/09/23 03/09/23 History rosuvastatin 10 mg tablet 20 mg PO DAILY 03/09/23 03/09/23 History Patient History Medical History Hepatitis C diagnosed in 1986; no longer has Alcoholism Gastritis Alcohol withdrawal Kidney stones GERD (gastroesophageal reflux disease) Idiopathic thrombocytopenia hx of, not currently Hypertension Surgical History History of colonoscopy History of esophagogastroduodenoscopy (EGD) History of inguinal hernia repair, bilateral History of tooth extraction wisdom teeth Family History Family/Other Family history of diabetes mellitus maternal uncle Grandmother Family hx of colon cancer maternal Mother COPD (chronic obstructive pulmonary disease) Brother Bipolar disorder Brother Coronary heart disease Social History Smoking Status: Current every day smoker Tobacco Type: Cigarettes Cigarettes Per Day: 7 a day; Second Hand Exposure: No; Do You Dip or Chew Tobacco: No; Hx Alcohol Use: Yes Alcohol type: beer and wine Alcohol Intake Frequency: 4 or More x per/Week Hx Substance Use: Yes Preferred Language: Malay Communication Ability: Effective Hand Screen Printer Required: No Beliefs That Will Affect Care: None marital status: Single Current Living Situation: Family Current Living Situation Comment: lives with mother current occupational status: unemployed How many Children do You have: 0 Feels Safe at Home: Yes Assistive Devices: Denture - Upper, Denture - Lower and Glasses Review of Systems Review of Systems: All systems reviewed & are unremarkable except as noted in HPI & below Physical Exam Constitutional: WD/WN, vitals as above Neck: trachea midline, no thyromegaly Respiratory: normal respiratory effort, lungs clear to auscultation Cardiovascular: RRR, no murmur, no edema Gastrointestinal (Abdomen): normal bowel sounds, soft, nontender, no hepatosplenomegaly Results & Data Vital Signs (Past 12 Hours) Vital Signs Temp Pulse Resp BP Pulse Ox O2 Del Method 07/21/24 08:00 56 L 16 139/70 98 07/21/24 07:39 65 19 146/98 H 07/21/24 05:36 57 L 12 134/78 100 Room Air 07/21/24 05:08 53 L 07/21/24 04:48 36.4 C L 65 22 105/47 L 97 Room Air Laboratory Results 07/21/24 07/21/24 Range/Units 08:08 05:07 WBC 9.17 (4.8-10.8) K/ul RBC 4.51 L (4.70-6.10) M/uL Hgb 14.0 (14.0-18.0) g/dl Hct 40.7 L (42.0-52.0) % MCV 90.2 (80.0-100.0) fL MCH 31.0 (25.0-34.0) pg MCHC 34.4 (32.0-36.0) g/dL RDW Std Deviation 39.2 (36.4-46.3) fL RDW Coeff of Augustus 11.9 (11.5-14.5) % Plt Count 260 (130-400) K/uL MPV 8.5 L (9.4-12.4) fL Immature Gran % (Auto) 0.3 % Neut % (Auto) 23.7 % Lymph % (Auto) 61.0 % [place] % (Auto) 11.6 % Eos % (Auto) 2.5 % Baso % (Auto) 0.9 % Neut # (Auto) 2.18 (1.40-6.50) K/uL Lymph # (Auto) 5.59 H (1.20-3.40) K/uL [place] # (Auto) 1.06 H (0.11-0.59) K/uL Eos # (Auto) 0.23 (0.00-0.50) K/uL Baso # (Auto) 0.08 (0.00-0.20) K/uL Immature Gran # (Auto) 0.03 (0.01-0.20) K/uL Sodium 137 (136-145) mmol/L Potassium 3.1 L (3.5-5.1) mmol/L Chloride 102 (98-107) mmol/L Carbon Dioxide 20 L (21-32) mmol/L Anion Gap 15 H (3-11) BUN 16 (6-23) mg/dl Creatinine 0.82 (0.6-1.4) mg/dl Est Cr Clr Drug Dosing 81.2 ml/min Est GFR ( Amer) 112.2 ml/min Est GFR (Non-Af Amer) 96.8 ml/min BUN/Creatinine Ratio 19.5 (10-20) Glucose 140 H (70-99(Fasting)) mg/dl Lactate 2.8 H* 4.9 H* (0.4-2.0) mmol/L Calcium 9.6 (8.6-10.3) mg/dl Magnesium 2.0 (1.7-2.4) mg/dl Total Bilirubin 0.3 (0.2-1.0) mg/dl AST 49 H (13-39) U/L ALT 46 (7-52) U/L Alkaline Phosphatase 70 (34-104) U/L Troponin I High Sens 3.5 (0-20) pg/ml Total Protein 6.9 (6.0-8.3) gm/dl Albumin 4.4 (3.4-5.0) gm/dl Globulin 2.5 (2.5-4.0) gm/dl Albumin/Globulin Ratio 1.8 (0.9-2) Lipase 23 (11-82) U/L Ethyl Alcohol mg/dL 28.9 H (<10.0) mg/dl Diagnostic Findings Abdomen/Pelvis CT 07/21/24 04:57 Exam(s): CT ABDOMEN + PELVIS With Contrast IV Amt: 119 ml opti 320 EXAM: CT Abdomen and Pelvis With Intravenous Contrast CLINICAL HISTORY: Reason for exam: severe mid abd pain, hep C, etoh. TECHNIQUE: Axial computed tomography images of the abdomen and pelvis with intravenous contrast. Automated exposure control was utilized for the study. A dose lowering technique was utilized adhering to the principles of ALARA. CONTRAST: Patient received 119 ml opti 320 of IV contrast COMPARISON: 01/22/2019. FINDINGS: ABDOMEN: Liver: The liver is enlarged and of diffuse decreased attenuation Gallbladder and bile ducts: There are gallstones noted within the gallbladder.. No ductal dilation. Pancreas: No mass. No ductal dilation. Spleen: No splenomegaly. Adrenals: No mass. Kidneys and ureters: . No solid mass. No hydronephrosis. Stomach and bowel: There is air and fluid within the stomach. There is air, fluid and stool noted in the colon.. There appears to be thickening of the wall of the proximal ascending colon PELVIS: Appendix: No findings to suggest acute appendicitis. Bladder: No Calculi are noted within the bladder. Reproductive: Unremarkable as visualized. ABDOMEN and PELVIS: Intraperitoneal space: No free air. No significant fluid collection. There are postoperative changes in the pelvis. Bones/joints: There are mild degenerative changes in the spine.. Soft tissues: Unremarkable. Vasculature: No abdominal aortic aneurysm. Lymph nodes: . No enlarged lymph nodes. IMPRESSION: There appears to be thickening of the wall of the proximal ascending colon. This may be due to under distention. Cannot exclude colitis. Cholelithiasis. The liver is enlarged and of diffuse decreased attenuation which may be due to fatty infiltration and/or hepatocellular disease. Electronically signed by: Hesham Santos MD 07/21/24 06:13 AM Chest CTA 07/21/24 05:07 Exam(s): CTA CHEST EXAM: CT Angiography Chest With Intravenous Contrast CLINICAL HISTORY: Reason for exam: PE. TECHNIQUE: Axial computed tomographic angiography images of the chest with intravenous contrast. Automated exposure control was utilized for the study. A dose lowering technique was utilized adhering to the principles of ALARA. MIP reconstructed images were created and reviewed. COMPARISON: No relevant prior studies available. FINDINGS: Pulmonary arteries: No pulmonary embolism is seen. Aorta: No thoracic aortic aneurysm or dissection. Lungs: There is some dependent atelectasis.. Pleural space: No significant effusion. No pneumothorax. Heart: The heart is normal in size.. Bones/joints: There are degenerative changes in the spine.. Soft tissues: Unremarkable. Lymph nodes: . No enlarged lymph nodes. Additional: There are gallstones within the gallbladder. IMPRESSION: No pulmonary embolism is seen. Cholelithiasis. Electronically signed by: Hesham Santos MD 07/21/24 06:06 AM Chest X-Ray 07/21/24 05:07 XR chest 1V portable CLINICAL HISTORY: severe upper abd pain TECHNIQUE: Single frontal radiograph of the chest was obtained. Comparison: Comparison is made to chest radiograph 03/09/2023 FINDINGS: No lines and tubes are seen. The cardiomediastinal silhouette is normal. The lungs are clear. No evidence of pleural effusion or pneumothorax. IMPRESSION: No acute chest disease. ACT 112: Negative or not required by law. Electronically signed by: Vick Reno M.D. 07/21/2024 8:34 AM Gallbladder Ultrasound 07/21/24 08:00 US gallbladder CLINICAL HISTORY: gallstones, severe abd pain; ro cholecystitis TECHNIQUE: Multiple real-time sonographic images of the right upper quadrant were obtained. Comparison: Comparison is made to CT abdomen pelvis 07/21/2024 FINDINGS: The liver is diffusely echogenic in appearance with poor ultrasound penetration, with normal contour, which is consistent with fatty infiltration. No focal mass lesions are seen. No intrahepatic ductal dilatation is seen. Linear hyperechoic foci with posterior shadowing are identified layering dependently within the gallbladder, which are consistent with gallstones. The gallbladder wall is not thickened. There is no pericholecystic fluid present. A sonographic Weeks's sign was not elicited by the woodworking belt sander. The common duct measures 0.4 cm in diameter at the level of the hepatic artery. The visualized portions of the pancreas appear normal. The right kidney shows normal echogenicity, cortical thickness and renal contour. The right kidney shows no evidence of hydronephrosis or mass. No ascites or free fluid is seen in Barone's pouch. IMPRESSION: 1. Hepatic steatosis. 2. Cholelithiasis without cholecystitis. ACT 112: Negative or not required by law. Electronically signed by: Vick Reno M.D. 07/21/2024 9:16 AM
[2024-07-21] MEDS: NICOTINE 14 MG/24 HR PATCH TD SCH (10:27)
[2024-07-21] MEDS: MULTIVITAMIN TAB PO SCH (10:28)
[2024-07-21] MEDS: METOPROLOL SUCC 50MG EXT REL TAB PO SCH (10:28)
[2024-07-21] MEDS: GABAPENTIN 600 MG TAB PO ONE (10:28)
[2024-07-21] MEDS: HYDROmorphone INJ 0.5 MG/0.5 ML SYR IV PRN (10:39)
--- NOTE | 2024-07-21 10:55 | Surgery Consultation ---
Date of Consultation July 21, 2024 Assessment & Plan (1) Abdominal pain, acute: Patient is 59 yo male that presented to the [facility] ER this AM with complaint of severe abdominal pain. He reports the pain started at 0400 and has never had abdominal pain like this episode in the past, states pain is located in the epigastric region and denies radiation. He reports he use to drink a six pack of beer daily however stopped drinking last weekend but then had one glass of wine last night with his dinner of rice and crab legs. He denies nausea/vomiting, fever/ chills. Does report a history of constipation and will take Dulcolax at home for this PRN. He does endorse a large bowel movement while being in the ER but states this does not relieve his abdominal discomfort. The patient was seen by GI and will have an EGD tomorrow. General surgery was consulted because GI was concerned severity of abd pain was out of proportion to gastritis or an ulcer and was concerned for biliary colic. On exam patient is no acute distress, but appears uncomfortable, corporative with exam. Abdomen is not distended, soft TTP , throughout with increase in pain epigastric region. VSS , afebrile, WBC wnl. Lactate is elevated at 4.9 on arrival after fluids 2.8. Ethyl Alcohol 28.9. T.bili 0.3, AST 49, ALT 46, alkaline phosphatase 70. CT scan : IMPRESSION: There appears to be thickening of the wall of the proximal ascending colon. This may be due to under distention. Cannot exclude colitis. Cholelithiasis. The liver is enlarged and of diffuse decreased attenuation which may be due to fatty infiltration and/or hepatocellular disease. Ultrasound : IMPRESSION: 1. Hepatic steatosis. 2. Cholelithiasis without cholecystitis. No acute cholecystitis , LFT wnl no acute surgical intervention at this time. Recommend continuing NPO IV Fluids for hydration IV antiemetic PRN IV analgesic PRN Monitor lactate, and LFTs Agree with upper GI tomorrow Will discuss case with on-call surgeon and further recommendations will be forthcoming. Supervising Physician Co-Signing Physician Notes pnt d/w PERINATAL NURSE, labs and imaging reviewed, agree with above. Presented with abd pain, cholelithiasis but no cholecystitis on imaging. exam w/ ttp but no peritonititis, vss, af. labs unremarkable, lactate normalized. imaging personally reviewed and interpreted, no e/o cholecystitis, possible right colitis. EGD tomorrow by GI, may need HIDA if want to r/o cholecystitis. History of Present Illness Reason for Consultation: abd pain Requesting Physician: Dr. Nichols Attending Physician: Dominic Nichols MD History of Present Illness Patient is 59 yo male with PMH alcoholism, gastritis, GERD, HTN, hepatitis C, kidney stones, that presented to the [facility] ER this AM with complaint of severe abdominal pain. He reports the pain started at 0400 and has never had abdominal pain like this episode in the past, states pain is located in the epigastric region and denies radiation. He reports he use to drink a six pack of beer daily however stopped drinking last weekend but then had one glass of wine last night with his dinner of rice and crab legs. He denies nausea/vomiting, fever/ chills. Does report a history of constipation and will take Dulcolax at home for this PRN. He does endorse a large bowel movement while being in the ER but states this does not relieve his abdominal discomfort. The patient was seen by GI and will have an EGD tomorrow. General surgery was consulted because GI was concerned severity of abd pain was out of proportion to gastritis or an ulcer and was concerned for biliary colic. Allergies Allergy/AdvReac Type Severity Reaction Status Date / Time tetracycline Allergy Unknown unknown Verified 03/09/23 14:16 Home Medications Medication Instructions Recorded Confirmed Type multivitamin 1 tab PO QAM 09/03/18 07/21/24 History omega 8-pkv-mve-fish oil 1,200 mg 1 cap PO QAM 09/03/18 07/21/24 History (144 mg-216 mg) capsule doxylamine succinate 25 mg tablet 25 mg PO HS PRN Sleep 09/30/21 07/21/24 History (Unisom (doxylamine)) melatonin 3 mg tablet 0 mg PO HS PRN Sleep 09/30/21 07/21/24 History metoprolol succinate 50 mg 50 mg PO QAM #30 tabs 09/30/21 07/21/24 Rx tablet,extended release 24 hr gabapentin 100 mg capsule 200 mg PO BID 03/09/23 07/21/24 History nortriptyline 50 mg capsule 50 mg PO HS 03/09/23 07/21/24 History rosuvastatin 10 mg tablet 20 mg PO DAILY 03/09/23 07/21/24 History Patient History Medical History Hepatitis C diagnosed in 1986; no longer has Alcoholism Gastritis Alcohol withdrawal Kidney stones GERD (gastroesophageal reflux disease) Idiopathic thrombocytopenia hx of, not currently Hypertension Surgical History History of colonoscopy History of esophagogastroduodenoscopy (EGD) History of inguinal hernia repair, bilateral History of tooth extraction wisdom teeth Family History Family/Other Family history of diabetes mellitus maternal uncle Grandmother Family hx of colon cancer maternal Mother COPD (chronic obstructive pulmonary disease) Brother Bipolar disorder Brother Coronary heart disease Social History Smoking Status: Current every day smoker Tobacco Type: Cigarettes Cigarettes Per Day: 7 a day; Second Hand Exposure: No; Do You Dip or Chew Tobacco: No; Tobacco Cessation Education Requested by Patient: No Hx Alcohol Use: Yes Alcohol type: beer and wine Alcohol Intake Frequency: 4 or More x per/Week Hx Substance Use: No Preferred Language: Icelandic Communication Ability: Effective Electrifier Operator Required: No Beliefs That Will Affect Care: None marital status: Single Current Living Situation: Family Current Living Situation Comment: lives with mother current occupational status: unemployed How many Children do You have: 0 Other Information That Helps Us Care for You: No Feels Safe at Home: Yes Safety Concerns: Feels Safe At This Time Assistive Devices: Denture - Upper, Denture - Lower and Glasses Review of Systems Constitutional: no fever and no chills Respiratory: no dyspnea Cardiovascular: no chest pain Gastrointestinal: + abdominal pain and + constipation; no nausea and no vomiting Physical Exam Constitutional: cooperative; + uncomfortable Respiratory: normal respiratory effort and able to speak in complete sentences; no respiratory distress Cardiovascular: Rate/Rhythm: regular rate Gastrointestinal (Abdomen): Inspection/Auscultation: abdomen not distended Percussion/Palpation: + abdomen tender and + guarding Results & Data Vital Signs (Past 12 Hours) Vital Signs Temp Pulse Resp BP Pulse Ox O2 Del Method 07/21/24 10:27 60 19 120/66 98 07/21/24 10:06 67 21 07/21/24 09:48 55 L 18 07/21/24 08:00 139/70 07/21/24 08:00 56 L 16 139/70 98 07/21/24 07:39 65 19 146/98 H 07/21/24 05:36 57 L 12 134/78 100 Room Air 07/21/24 05:08 53 L 07/21/24 04:48 97.5 F L 65 22 105/47 L 97 Room Air Diagnostic Findings [place], [place] [phone] CT Scan Report Patient: ALAINA FLYNN Admit Date: 07/21/24 MR#: [id number] Address1: [place] [address] Acct ID:[id number] Address2: Date: 1965 [facility] Zip: [place] [address] Age: 59 Location: ED Sex: M Room/Bed: Att Phy: Diagnosis: ABD PAIN Maria T Phy: Miguelangel Mcdonald MD Service Date: 07/21/24 Fam Phy: Interpreting Phy: Hesham Snatos MDAdmit Phy: Ordering Phy: Komal Gage PA-C cc: ~ Exam(s): CT ABDOMEN + PELVIS With Contrast IV Amt: 119 ml opti 320 EXAM: CT Abdomen and Pelvis With Intravenous Contrast CLINICAL HISTORY: Reason for exam: severe mid abd pain, hep C, etoh. TECHNIQUE: Axial computed tomography images of the abdomen and pelvis with intravenous contrast. Automated exposure control was utilized for the study. A dose lowering technique was utilized adhering to the principles of ALARA. CONTRAST: Patient received 119 ml opti 320 of IV contrast COMPARISON: 01/22/2019. FINDINGS: ABDOMEN: Liver: The liver is enlarged and of diffuse decreased attenuation Gallbladder and bile ducts: There are gallstones noted within the gallbladder.. No ductal dilation. Pancreas: No mass. No ductal dilation. Spleen: No splenomegaly. Adrenals: No mass. Kidneys and ureters: . No solid mass. No hydronephrosis. Stomach and bowel: There is air and fluid within the stomach. There is air, fluid and stool noted in the colon.. There appears to be thickening of the wall of the proximal ascending colon PELVIS: Appendix: No findings to suggest acute appendicitis. Bladder: No Calculi are noted within the bladder. Reproductive: Unremarkable as visualized. ABDOMEN and PELVIS: Intraperitoneal space: No free air. No significant fluid collection. There are postoperative changes in the pelvis. Bones/joints: There are mild degenerative changes in the spine.. Soft tissues: Unremarkable. Vasculature: No abdominal aortic aneurysm. Lymph nodes: . No enlarged lymph nodes. IMPRESSION: There appears to be thickening of the wall of the proximal ascending colon. This may be due to under distention. Cannot exclude colitis. Cholelithiasis. The liver is enlarged and of diffuse decreased attenuation which may be due to fatty infiltration and/or hepatocellular disease. Electronically signed by: Hesham Santos MD 07/21/24 06:13 AM Dictated: 07/21/24612 Transcribed: 07/21/24612 [place], [place] [phone] Ultrasound Report Patient: ALAINA FLYNN Admit Date: 07/21/24 MR#: [id number] Address1: [place] [address] Acct ID:[id number] Address2: Date: 1965 [facility] Zip: [place] [address] Age: 59 Location: [facility] Sex: M Room/Bed: [place] [address] Att Phy: Dominic Nichols MD Diagnosis: abdominal pain, lactic acidosis Maria T Phy: Miguelangel Mcdonald MD Service Date: 07/21/24 Fam Phy: Interpreting Phy: Vick Reno [facility] Phy: Dominic Nichols MD Ordering Phy: Dominic Nichols MD cc: ~ US gallbladder CLINICAL HISTORY: gallstones, severe abd pain; ro cholecystitis TECHNIQUE: Multiple real-time sonographic images of the right upper quadrant were obtained. Comparison: Comparison is made to CT abdomen pelvis 07/21/2024 FINDINGS: The liver is diffusely echogenic in appearance with poor ultrasound penetration, with normal contour, which is consistent with fatty infiltration. No focal mass lesions are seen. No intrahepatic ductal dilatation is seen. Linear hyperechoic foci with posterior shadowing are identified layering dependently within the gallbladder, which are consistent with gallstones. The gallbladder wall is not thickened. There is no pericholecystic fluid present. A sonographic Weeks's sign was not elicited by the insurance sales executive. The common duct measures 0.4 cm in diameter at the level of the hepatic artery. The visualized portions of the pancreas appear normal. The right kidney shows normal echogenicity, cortical thickness and renal contour. The right kidney shows no evidence of hydronephrosis or mass. No ascites or free fluid is seen in Barone's pouch. IMPRESSION: 1. Hepatic steatosis. 2. Cholelithiasis without cholecystitis. ACT 112: Negative or not required by law. Electronically signed by: Vick Reno M.D. 07/21/2024 9:16 AM Dictated: 07/21/24914 Transcribed: 07/21/24914 Results CBC w Diff Results: 2 RBC 4.51 M/uL (4.70-6.10) L 07/21/24 WBC 9.17 K/ul (4.8-10.8) 07/21/24 Hgb 14.0 g/dl (14.0-18.0) 07/21/24 Hct 40.7 % (42.0-52.0) L 07/21/24 MCV 90.2 fL (80.0-100.0) 07/21/24 MCH 31.0 pg (25.0-34.0) 07/21/24 MCHC 34.4 g/dL (32.0-36.0) 07/21/24 RDW Standard Deviation 39.2 fL (36.4-46.3) 07/21/24 RDW Coefficient of Variation 11.9 % (11.5-14.5) 07/21/24 Plt Count 260 K/uL (130-400) 07/21/24 MPV 8.5 fL (9.4-12.4) L 07/21/24 Neutrophils (%) (Auto) 23.7 % 07/21/24 Lymphocytes (%) (Auto) 61.0 % 07/21/24 Monocytes # (Auto) 1.06 K/uL (0.11-0.59) H 07/21/24 Eosinophils # (Auto) 0.23 K/uL (0.00-0.50) 07/21/24 Immature Granulocyte % (Auto) 0.3 % 07/21/24 Neutrophils # (Auto) 2.18 K/uL (1.40-6.50) 07/21/24 Lymphocytes # (Auto) 5.59 K/uL (1.20-3.40) H 07/21/24 Monocytes # (Auto) 1.06 K/uL (0.11-0.59) H 07/21/24 Eosinophils # (Auto) 0.23 K/uL (0.00-0.50) 07/21/24 Basophils # (Auto) 0.08 K/uL (0.00-0.20) 07/21/24 Immature Granulocyte # (Auto) 0.03 K/uL (0.01-0.20) 4 PG Care Time/CCT Total # of Minutes Spent Total Time Spent with Patient: Total time spent is greater than 50% in coordination of care (as documented) at patient's floor/unit and/or counseling patient: Coding Level of Care Code 68734 IN/OBS CONSULT LVL 3,45M Diagnoses Abdominal pain, acute R10.9
[2024-07-21 12:08] LABS: Appearance Urine Clear (Clear); Bilirubin Urine Negative (Negative); Blood Urine Negative (Negative); Color Urine Yellow; Glucose Urine UA Negative (Negative); Ketones Urine 1+ (Negative); Leukocyte Esterase Urine Negative (Negative); Nitrite Urine Negative (Negative); Protein Urine Negative (Negative); Specific Gravity Urine 1.037 (1.000-1.030); Urobilinogen Urine Negative (Negative); pH Urine 5.5 (4.5-7.5)
[2024-07-21 12:31] LABS: Amphetamines+Metham, Urine Neg (Neg); Barbiturates, Urine Neg (Neg); Benzodiazepine, Urine Neg (Neg); Cocaine, Urine Neg (Neg); Fentanyl, Urine Pos (Neg); MDMA (Ecstacy), Urine Neg (Neg); Marijuana, Urine Neg (Neg); Methadone, Urine Pos (Neg); Opiate, Urine Pos (Neg); Phencyclidine, Urine Neg (Neg)
[2024-07-21 13:32] LABS: Adenovirus F 40/41 PCR Not Detected (NotDetected); Astrovirus PCR Not Detected (NotDetected); Campylobacter PCR Not Detected (NotDetected); Cryptosporidium PCR Not Detected (NotDetected); Cyclospora cayetanensis PCR Not Detected (NotDetected); Entamoeba histolytica PCR Not Detected (NotDetected); Enteroaggregative E.coli(EAEC) Not Detected (NotDetected); Enteropathogenic E.coli (EPEC) Not Detected (NotDetected); Enterotoxigenic E.coli (ETEC) Not Detected (NotDetected); Giardia lamblia PCR Not Detected (NotDetected); Norovirus GI/GII PCR Not Detected (NotDetected); Plesiomonas shigelloides PCR Not Detected (NotDetected); Rotavirus A PCR Not Detected (NotDetected); Salmonella PCR Not Detected (NotDetected); Sapovirus PCR Not Detected (NotDetected); Shiga-like Toxin E.coli (STEC) Not Detected (NotDetected); Shigella/Enteroinvasive E.coli Not Detected (NotDetected); Vibrio cholerae PCR Not Detected (NotDetected); Vibrio species PCR Not Detected (NotDetected); Yersinia enterocolitica PCR Not Detected (NotDetected)
[2024-07-21 14:51] LABS: BUN Creatinine Ratio 23.1 (10-20); Creatinine Clr Calc Pharmacy 102.5 ml/min; Est GFR (African American) 123.4 ml/min; Est GFR (Non-African American) 106.5 ml/min; Potassium 4.6 mmol/L (3.5-5.1)
[2024-07-21] MEDS: GABAPENTIN 600 MG TAB PO SCH (16:52)
[2024-07-21] MEDS: THIAMINE HCL 200 MG in SODIUM CHLORIDE 0.9% 50 ML IV SCH (21:07)
[2024-07-21] MEDS: MELATONIN 3 MG TAB PO SCH (21:10)
[2024-07-21] MEDS: NORTRIPTYLINE HCL 25 MG CAP PO SCH (21:10)
[2024-07-21] MEDS: PANTOprazole 40 MG in SYRINGE 0 ML IV SCH (21:12)
[2024-07-22 02:34] LABS: Hematocrit (blood only) 35.6 % (42.0-52.0); Mean Corpuscular Hemoglobin 31.3 pg (25.0-34.0); Mean Corpuscular Hgb Conc 33.7 g/dL (32.0-36.0); Mean Corpuscular Volume 92.7 fL (80.0-100.0); Mean Platelet Volume 8.6 fL (9.4-12.4); Platelet Count 157 K/uL (130-400); RDW Standard Deviation 41.1 fL (36.4-46.3); Red Blood Count 3.84 M/uL (4.70-6.10); White Blood Count 6.66 K/ul (4.8-10.8)
[2024-07-22 03:00] LABS: Albumin Level 3.4 gm/dl (3.4-5.0); BUN Creatinine Ratio 16.9 (10-20); Bilirubin Direct 0.1 mg/dl (0-0.2); Bilirubin,Total 0.6 mg/dl (0.2-1.0); Calcium 8.1 mg/dl (8.6-10.3); Creatinine Clr Calc Pharmacy 112.8 ml/min; Est GFR (African American) 123.4 ml/min; Est GFR (Non-African American) 106.5 ml/min; Potassium 4.5 mmol/L (3.5-5.1); Total Protein 5.3 gm/dl (6.0-8.3)
[2024-07-22] MEDS: GABAPENTIN 600 MG TAB PO SCH (05:56)
[2024-07-22] MEDS: FOLIC ACID 1 MG in SYRINGE 9.8 ML IV SCH (08:44)
--- NOTE | 2024-07-22 11:57 | Anesthesiology Consultation ---
Date of Service July 22, 2024 Assessment & Plan Chart Review Chart Review: Acceptable Risk for Surgery and Patient NOT seen in Pre Admission Testing Consults Requested none History Surgery Operation Date: 07/22/24 16:30 Proposed Procedures p Esophagogastroduodenoscopy Dr. Hernandez - China Hernandez Jr, MD Height/Weight Height: 5 ft 4 in Weight: 74.1 kg Allergies Allergy/AdvReac Type Severity Reaction Status Date / Time tetracycline Allergy Unknown unknown Verified 03/09/23 14:16 Medications Home Medications Medication Instructions Recorded Confirmed Last Taken multivitamin 1 tab PO QAM 09/03/18 07/21/24 09/29/21 omega 2-hgi-wds-fish oil 1,200 mg 1 cap PO QAM 09/03/18 07/21/24 09/29/21 (144 mg-216 mg) capsule doxylamine succinate 25 mg tablet 25 mg PO HS PRN Sleep 09/30/21 07/21/24 09/29/21 (Unisom (doxylamine)) 1 tab melatonin 3 mg tablet 0 mg PO HS PRN Sleep 09/30/21 07/21/24 09/29/21 metoprolol succinate 50 mg 50 mg PO QAM #30 tabs 09/30/21 07/21/24 Unknown tablet,extended release 24 hr gabapentin 100 mg capsule 200 mg PO BID 03/09/23 07/21/24 Unknown nortriptyline 50 mg capsule 50 mg PO HS 03/09/23 07/21/24 Unknown rosuvastatin 10 mg tablet 20 mg PO DAILY 03/09/23 07/21/24 Unknown Active Medications Generic Name Dose Route Start Last Admin Trade Name Sharadq PRN Reason Stop Dose Admin Gabapentin 600 mg 07/22/24 06:00 07/22/24 05:56 Gabapentin 600 Mg Tab PO 07/22/24 22:01 Not Given Q8H MINGO Hydromorphone HCl 0.5 mg 07/21/24 09:22 07/22/24 11:12 Hydromorphone Inj 0.5 Mg/0.5 Ml Syr IV 08/04/24 09:21 0.5 mg Q3H PRN Administration Pain Potassium Chloride 20 meq/ 1,010 mls @ 125 mls/hr 07/21/24 09:45 07/22/24 04:21 Lactated Ringer's IV 08/20/24 09:44 125 mls/hr .Q8H5M MINGO Administration Pantoprazole Sodium 40 mg/ 10 mls @ 5 mls/min 07/21/24 21:00 07/22/24 08:44 Syringe IV 08/20/24 20:59 5 mls/min BID MINGO Administration Thiamine HCl 200 mg/ Sodium 52 mls @ 210 mls/hr 07/21/24 21:00 07/22/24 09:02 Chloride IV 08/20/24 20:59 Infused BID MINGO Infusion Folic Acid 1 mg/ Syringe 10 mls @ 5 mls/min 07/22/24 09:00 07/22/24 08:44 IV 08/21/24 08:59 Not Given QAM MINGO Melatonin 3 mg 07/21/24 21:00 07/21/24 21:10 Melatonin 3 Mg Tab PO 08/20/24 20:59 3 mg HS MINGO Administration Metoprolol Succinate 50 mg 07/21/24 09:45 07/22/24 08:44 Metoprolol Succ 50mg Ext Rel Tab PO 08/20/24 09:44 Not Given QAM MINGO Miscellaneous 1 each 07/21/24 09:44 07/22/24 08:43 Remove Nicoderm Patch N/A 08/20/24 09:43 1 each DAILY@0859 MINGO Administration Multivitamins 1 tab 07/21/24 09:45 07/22/24 08:44 Multivitamin Tab PO 08/20/24 09:44 Not Given QAM MINGO Nicotine 1 patch 07/21/24 09:45 07/22/24 08:46 Nicotine 14 Mg/24 Hr Patch TD 08/20/24 09:44 1 patch QAM MINGO Administration Nortriptyline HCl 50 mg 07/21/24 21:00 07/21/24 21:10 Nortriptyline Hcl 25 Mg Cap PO 08/20/24 20:59 50 mg HS MINGO Administration Past Medical History Medical History Hepatitis C diagnosed in 1986; no longer has Alcoholism Gastritis Alcohol withdrawal Kidney stones GERD (gastroesophageal reflux disease) Idiopathic thrombocytopenia hx of, not currently Hypertension Past Family History Family History Family/Other Family history of diabetes mellitus maternal uncle Grandmother Family hx of colon cancer maternal Mother COPD (chronic obstructive pulmonary disease) Brother Bipolar disorder Brother Coronary heart disease Past Surgical History Surgical History History of colonoscopy History of esophagogastroduodenoscopy (EGD) History of inguinal hernia repair, bilateral History of tooth extraction wisdom teeth Social History Smoking Status: Current every day smoker tobacco type: cigarettes Smoking cigarettes per day: 7 a day Do You Dip or Chew Tobacco: No Hx Alcohol Use: Yes Alcohol type: beer and wine alcohol intake frequency: a few times a month Hx Substance Use: No substance use type: does not use Physical Exam Vital Signs Last Vital Signs Temp 36.8 C 07/22/24 11:03 Pulse 81 07/22/24 11:03 Resp 20 07/22/24 11:03 BP 142/81 H 07/22/24 11:03 Pulse Ox 94 07/22/24 11:03 O2 Del Method Room Air 07/22/24 11:03 Testing Laboratory Results 07/22/24 02:16 07/22/24 02:16 Urine Color Yellow 07/21/24 11:43 Urine Appearance Clear (Clear) 07/21/24 11:43 Urine pH 5.5 (4.5-7.5) 07/21/24 11:43 Ur Specific [place] 1.037 (1.000-1.030) H 07/21/24 11:43 Urine Protein Negative (Negative) 07/21/24 11:43 Urine Glucose (UA) Negative (Negative) 07/21/24 11:43 Urine Ketones 1+ (Negative) H 07/21/24 11:43 Urine Nitrite Negative (Negative) 07/21/24 11:43 Ur Leukocyte Esterase Negative (Negative) 07/21/24 11:43
--- NOTE | 2024-07-22 12:04 | History & Physical Report ---
Date of Service July 22, 2024 Assessment & Plan (1) Abdominal pain, acute: Plan: Pleasant man who needs EGD. Procedure and risks discussed. He agrees Admission and Anticipated Discharge Date Admission Date: July 21, 2024 History of Present Illness Chief Complaint: abdominal pain Primary Care Provider: Miguelangel Mcdonald MD 59 year old man admitted with severe upper abdominal pain. He is here for EGD Allergies Allergy/AdvReac Type Severity Reaction Status Date / Time tetracycline Allergy Unknown unknown Verified 03/09/23 14:16 Home Medications Medication Instructions Recorded Confirmed Type multivitamin 1 tab PO QAM 09/03/18 07/21/24 History omega 6-xcr-awt-fish oil 1,200 mg 1 cap PO QAM 09/03/18 07/21/24 History (144 mg-216 mg) capsule doxylamine succinate 25 mg tablet 25 mg PO HS PRN Sleep 09/30/21 07/21/24 History (Unisom (doxylamine)) melatonin 3 mg tablet 0 mg PO HS PRN Sleep 09/30/21 07/21/24 History metoprolol succinate 50 mg 50 mg PO QAM #30 tabs 09/30/21 07/21/24 Rx tablet,extended release 24 hr gabapentin 100 mg capsule 200 mg PO BID 03/09/23 07/21/24 History nortriptyline 50 mg capsule 50 mg PO HS 03/09/23 07/21/24 History rosuvastatin 10 mg tablet 20 mg PO DAILY 03/09/23 07/21/24 History Past Med/Surg History Problem List DVT prophylaxis Depression History of gastric ulcer Abnormal CT scan, colon Gallstones Tobacco dependence Abdominal pain, acute (Acute) Acute lactic acidosis (Acute) Neuropathy HTN (hypertension) GERD (gastroesophageal reflux disease) Alcohol abuse Paresthesias Colon cancer screening Encounter for pre-operative examination Medical History Hepatitis C diagnosed in 1986; no longer has Alcoholism Gastritis Alcohol withdrawal Kidney stones GERD (gastroesophageal reflux disease) Idiopathic thrombocytopenia hx of, not currently Hypertension Surgical History History of colonoscopy History of esophagogastroduodenoscopy (EGD) History of inguinal hernia repair, bilateral History of tooth extraction wisdom teeth Family History Family/Other Family history of diabetes mellitus maternal uncle Grandmother Family hx of colon cancer maternal Mother COPD (chronic obstructive pulmonary disease) Brother Bipolar disorder Brother Coronary heart disease Social History Smoking Status: Current every day smoker Tobacco Type: Cigarettes Cigarettes Per Day: 7 a day; Second Hand Exposure: No; Do You Dip or Chew Tobacco: No; Hx Alcohol Use: Yes Alcohol type: beer and wine Alcohol Intake Frequency: 4 or More x per/Week Hx Substance Use: No Preferred Language: Bulgarian Communication Ability: Effective Selector Packer Required: No Beliefs That Will Affect Care: None marital status: Single Current Living Situation: Family Current Living Situation Comment: lives with mother current occupational status: unemployed How many Children do You have: 0 Feels Safe at Home: Yes Assistive Devices: Denture - Upper, Denture - Lower and Glasses Physical Exam Constitutional: WD/WN, vitals as above Neck: trachea midline, no thyromegaly Respiratory: normal respiratory effort, lungs clear to auscultation Cardiovascular: RRR, no murmur, no edema Gastrointestinal (Abdomen): normal bowel sounds, soft, nontender, no hepatosplenomegaly ASA Classification ASA ASA3 Results & Data Vital Signs (Past 12 Hours) Vital Signs Temp Pulse Pulse Resp BP BP Pulse Ox 07/22/24 11:03 36.8 C 81 20 142/81 H 94 07/22/24 09:22 07/22/24 06:57 36.5 C 75 20 122/68 94 07/22/24 03:32 37.5 C 68 16 153/72 H 95 07/22/24 01:27 07/22/24 01:12 36.9 C 70 18 136/79 94 07/22/24 01:11 75 O2 Del Method O2 Del Method 07/22/24 11:03 Room Air 07/22/24 09:22 Room Air 07/22/24 06:57 Room Air 07/22/24 03:32 Room Air 07/22/24 01:27 Room Air 07/22/24 01:12 Room Air 07/22/24 01:11
[2024-07-22 12:10] LABS: iSTAT Creatinine 0.8 mg/dl (0.6-1.3); iSTAT Hemoglobin 14.3 g/dl (14.0-18.0); iSTAT Ionized Calcium 1.09 mmol/l (1.12-1.32)
--- NOTE | 2024-07-22 12:39 | Communication Note ---
Date of Service: July 22, 2024 EGD does show small duodenal ulcer. I can't imagine an ulcer this size causing the amount of pain he is reporting. If not considering GB as cause of pain might consider CTA of abdominal vessels to rule out ischemia especially in light of the "questionable colitis" seen in right colon
--- NOTE | 2024-07-22 12:40 | GI REPORT ---
[facility] Patient: ALAINA FLYNN : 1965 Sex at : Male Age: 59 Years Procedure: Upper GI endoscopy Date: 07/22/2024 Attending Physician: China Hernandez MD Referring MD: Dominic Nichols Indications: - Generalized abdominal pain Medications: - Monitored Anesthesia Care - Propofol per Anesthesia - See the Anesthesia note for documentation of the administered medications Complications: - No immediate complications. Estimated Blood Loss: - Estimated blood loss: None. Procedure: - ASA Grade Assessment: III - A patient with severe systemic disease. - The egd scope was introduced through the mouth and advanced to the second part of the duodenum. - The upper GI endoscopy was accomplished without difficulty. - The patient tolerated the procedure well. Findings: - The examined esophagus was normal. - The entire examined stomach was normal. - One non-bleeding superficial duodenal ulcer was found in the duodenal bulb. The lesion was 3 mm in largest dimension. Impression: - Normal esophagus. - Normal stomach. - Non-bleeding duodenal ulcer. - No specimens collected. Recommendation: - [facility] to [facility]. Procedure Code(s): - 36680, Esophagogastroduodenoscopy, flexible, transoral; diagnostic, including collection of specimen(s) by brushing or washing, when performed (separate procedure) Diagnosis Code(s): - R10.84, Generalized abdominal pain - K26.9, Duodenal ulcer, unspecified as acute or chronic, without hemorrhage or perforation CPT(R) - 2023 copyright [employer]. All Rights Reserved. The CPT codes, CCI edits and ICD codes generated are intended as suggestions and were generated based on input data. These codes are preliminary and upon cerner analyst review may be revised to meet current compliance and payer requirements. The provider is responsible for the final determination of appropriate codes, and modifiers. Dr. China Hernandez MD This document has been electronically signed. Note Initiated:07/22/2024 Note Completed:07/22/2024 12:38 PM \\[id number]
[2024-07-22] MEDS: SODIUM CHLORIDE 0.9% 500 ML IV SCH (13:31)
[2024-07-22] MEDS: PATIENT'S OWN CONTROLLED MED 1 SCH (13:32)
[2024-07-22] MEDS: LIDOCAINE 2% 2 ML VIAL/AMP(20MG/ML) INFIL ONE ×2 (13:32→13:33)
[2024-07-22] MEDS: PROPOFOL IV EMULSION 10 MG/ML 20 ML VIAL IV ONE (13:32)
[2024-07-22] MEDS: METHADONE ORAL SOLN 2 MG/ML PO SCH (13:33)
--- NOTE | 2024-07-22 15:08 | Anesthesiology Progress Note ---
Date of Service July 22, 2024 Anesthesia Post Procedure Vital Signs Vital Signs: Temp Pulse Pulse Pulse Resp BP BP 07/22/24 13:47 47 L 07/22/24 13:11 70 16 148/85 H 07/22/24 12:56 72 16 131/76 07/22/24 12:41 77 16 138/77 07/22/24 12:01 37.1 C 79 18 143/88 H 07/22/24 11:03 36.8 C 81 20 07/22/24 09:22 07/22/24 06:57 36.5 C 75 20 07/22/24 03:32 37.5 C 68 16 07/22/24 01:27 07/22/24 01:12 36.9 C 70 18 136/79 07/22/24 01:11 75 07/21/24 23:00 78 14 116/79 07/21/24 21:00 91 H 15 103/84 07/21/24 19:00 70 15 116/78 07/21/24 17:33 62 19 07/21/24 17:00 63 16 122/74 07/21/24 16:33 58 L 13 07/21/24 16:03 55 L 15 07/21/24 16:00 125/75 07/21/24 16:00 125/75 07/21/24 16:00 125/75 07/21/24 16:00 125/75 07/21/24 15:33 53 L 15 07/21/24 15:33 89 07/21/24 15:30 51 L 10 L 07/21/24 15:24 37.0 C 54 L 16 122/74 07/21/24 15:16 53 L 18 122/74 07/21/24 15:14 122/74 07/21/24 15:14 122/74 07/21/24 15:14 122/74 BP Pulse Ox O2 Del Method O2 Del Method 07/22/24 13:47 07/22/24 13:11 95 Room Air 07/22/24 12:56 95 Room Air 07/22/24 12:41 96 Room Air 07/22/24 12:01 95 Room Air 07/22/24 11:03 142/81 H 94 Room Air 07/22/24 09:22 Room Air 07/22/24 06:57 122/68 94 Room Air 07/22/24 03:32 153/72 H 95 Room Air 07/22/24 01:27 Room Air 07/22/24 01:12 94 Room Air 07/22/24 01:11 07/21/24 23:00 Room Air 07/21/24 21:00 93 Room Air 07/21/24 19:00 98 Room Air 07/21/24 17:33 97 07/21/24 17:00 96 07/21/24 16:33 95 07/21/24 16:03 97 07/21/24 16:00 07/21/24 16:00 07/21/24 16:00 07/21/24 16:00 07/21/24 15:33 96 07/21/24 15:33 07/21/24 15:30 95 07/21/24 15:24 96 07/21/24 15:16 99 Room Air 07/21/24 15:14 07/21/24 15:14 07/21/24 15:14 Pain Intensity Abdomen: Pain Intensity: 6 Transfer of Care Handoff Completed per policy Notes Mental Status: alert / awake / arousable Patient Amnestic to Procedure: Yes Nausea / Vomiting: adequately controlled Pain: adequately controlled Airway Patency, RR, SpO2: stable & adequate BP & HR: stable & adequate Hydration State: stable & adequate Anesthetic Complications: no major complications apparent
--- NOTE | 2024-07-22 15:31 | Surgery Progress Note ---
Date of Service July 22, 2024 Assessment & Plan (1) Abdominal pain, acute: Plan: pt reports ongoing abd pain , tolerable with pain medication Had EGD today which is showing gastric ulcer He is on Protonix BID, will add sucralfate QID WBC wnl Abd soft , TTP mainly epigastric region Keep NPO for now will follow Admission and Anticipated Discharge Date Admission Date: July 21, 2024 Subjective pt reports continued abd pain no flatus or bm today Review of Systems Constitutional: no fever and no chills Respiratory: no dyspnea Cardiovascular: no chest pain Gastrointestinal: + abdominal pain; no nausea and no vomit ing Physical Exam Constitutional: cooperative; no acute distress Respiratory: normal respiratory effort and able to speak in complete sentences; no respiratory distress Cardiovascular: Rate/Rhythm: regular rate Gastrointestinal (Abdomen): Inspection/Auscultation: abdomen not distended Percussion/Palpation: + abdomen tender Results & Data Vital Signs (Past 12 Hours) Vital Signs Temp Pulse Pulse Pulse Resp BP BP 07/22/24 15:08 98.1 F 70 18 126/66 07/22/24 13:47 47 L 07/22/24 13:11 70 16 148/85 H 07/22/24 12:56 72 16 131/76 07/22/24 12:41 77 16 138/77 07/22/24 12:01 98.8 F 79 18 143/88 H 07/22/24 11:03 98.2 F 81 20 142/81 H 07/22/24 09:22 07/22/24 06:57 97.7 F 75 20 122/68 07/22/24 03:32 99.5 F 68 16 153/72 H Pulse Ox O2 Del Method O2 Del Method 07/22/24 15:08 96 Room Air 07/22/24 13:47 07/22/24 13:11 95 Room Air 07/22/24 12:56 95 Room Air 07/22/24 12:41 96 Room Air 07/22/24 12:01 95 Room Air 07/22/24 11:03 94 Room Air 07/22/24 09:22 Room Air 07/22/24 06:57 94 Room Air 07/22/24 03:32 95 Room Air Results CBC w Diff Results: RBC 3.84 M/uL (4.70-6.10) L 07/22/24 WBC 6.66 K/ul (4.8-10.8) 07/22/24 Hgb 12.0 g/dl (14.0-18.0) L 07/22/24 Hct 35.6 % (42.0-52.0) L 07/22/24 MCV 92.7 fL (80.0-100.0) 07/22/24 MCH 31.3 pg (25.0-34.0) 07/22/24 MCHC 33.7 g/dL (32.0-36.0) 07/22/24 RDW Standard Deviation 41.1 fL (36.4-46.3) 07/22/24 RDW Coefficient of Variation 12.0 % (11.5-14.5) 07/22/24 Plt Count 157 K/uL (130-400) 07/22/24 MPV 8.6 fL (9.4-12.4) L 07/22/24 Neutrophils (%) (Auto) 23.7 % 07/21/24 Lymphocytes (%) (Auto) 61.0 % 07/21/24 Monocytes # (Auto) 1.06 K/uL (0.11-0.59) H 07/21/24 Eosinophils # (Auto) 0.23 K/uL (0.00-0.50) 07/21/24 Immature Granulocyte % (Auto) 0.3 % 07/21/24 Neutrophils # (Auto) 2.18 K/uL (1.40-6.50) 07/21/24 Lymphocytes # (Auto) 5.59 K/uL (1.20-3.40) H 07/21/24 Monocytes # (Auto) 1.06 K/uL (0.11-0.59) H 07/21/24 Eosinophils # (Auto) 0.23 K/uL (0.00-0.50) 07/21/24 Basophils # (Auto) 0.08 K/uL (0.00-0.20) 07/21/24 Immature Granulocyte # (Auto) 0.03 K/uL (0.01-0.20) 4 PG Care Time/CCT Total # of Minutes Spent Total Time Spent with Patient: Total time spent is greater than 50% in coordination of care (as documented) at patient's floor/unit and/or counseling patient: Coding Level of Care Code 51074 SUB INP/OBS CARE 11/30MIN Diagnoses Abdominal pain, acute R10.9
[2024-07-22] MEDS: SUCRALFATE 1 GM/10 ML UDC PO SCH (18:02)
[2024-07-22] MEDS: OPTIRAY 320 125ml IV ONE (19:46)
--- NOTE | 2024-07-22 20:46 | Hospitalist Progress Note ---
Date of Service July 22, 2024 Assessment & Plan (1) Abdominal pain, acute: Plan: Ongoing pain despite IV PPI, NPO status, pain meds, etc. CT abd/pelvis at admission with gallstones & thickening of the transverse colon. RUQ u/s with gallstones but no features of acute cholecystitis. s/p EGD today - very small nonbleeding superficial duodenal ulcer - likely a contributing factor to his pain but probably NOT the primary culprit in his pain. LFTS and lipase today remain wnl. Still no chest symptoms to suggest this is ischemic chest pain. Appreciate GI & gen surg support. Plan - * as pain has radiated to his back at times will obtain CTA chest dissection protocol - r/o aortic dissection * check CTA abd/pelvis - r/o mesenteric ischemia, any other smoldering intra- abdominal process * cont NPO status * cont IV fluids * cont IV PPI * cont IV pain meds * cont chronic daily methadone maintenance 51mg * recheck labs am (2) Duodenal ulcer: Plan: very small, superficial, non-bleeding unlikely to be the main cause of his symptoms [id number] continue IV PPI (3) Acute lactic acidosis: Plan: Present on admission. Peak lactate - 4.9. Normalizing to 1.5 with copious IV fluids yesterday. Etiology? Ischemic gut/ischemic event to abdomen? Due to colitis? Other? Cont IV fluids. CTA chest/abd/pelvis ordered for this evening - see #1 above. (4) HTN (hypertension): Plan: Cont meto succ daily (5) GERD (gastroesophageal reflux disease): Plan: IV PPI twice daily (6) Alcohol abuse: Plan: Records indicate heavy beer consumption. He reports no beer in 1 week prior to admission but he did drink wine on 07/20/24. Alcohol level <50 at presentation to the ER. Records also indicate past h/o alcohol withdrawal. Thus far no signs/symptoms of such. Continue: * AWSS protocol * symptom-triggered ativan prn * gabapentin taper * IV thiamine 200mg BID * IV folic acid 1mg daily * MVI daily * telemetry * consider Naltrexone in the future (7) Tobacco dependence: Plan: Nicoderm patch 14mg/24 hours. (8) Gallstones: Plan: As seen on CT abd/pelvis. Checked RUQ u/s - no findings of acute cholecystitis as the cause of his presentation. If CTA chest/abd/pelvis are negative consider HIDA scan. LFTs and lipase are wnl. (9) Abnormal CT scan, colon: Plan: ?transverse colitis? He did report diarrhea and some BRBPR over the last few days prior to admission. Stool biofire was NEGATIVE. Obtaining at CTA study of his abd/pelvis as discussed above. (10) History of gastric ulcer: Plan: none seen on today's EGD, but he did have a tiny duodenal ulcer on his endoscopy by Dr Hernandez PPI IV BID (11) Depression: Plan: Cont nortriptylein daily (12) DVT prophylaxis: Plan: Hold off on chemical means at this time in the event he needs additional procedures (13) Methadone maintenance therapy patient: Plan: I confirmed with [facility] - a methadone maintenance clinic - that the patient is indeed enrolled there and current daily dose is 51mg/day This was ordered for the patient this am Admission and Anticipated Discharge Date Admission Date: July 21, 2024 Subjective patient reports ongoing abd pain in the upper abdomen this is despite 24+ hours of IV PPI, NPO status, etc. denies any nausea/emesis had 1 episode of BRBPR yesterday but none today no stools since yesterday EGD done today - very tiny nonbleeding duodenal ulcer found; stomach and esophagus were wnl I called and spoke with staff at [facility] they confirmed that Mr Obando's methadone dose is 51mg/day patient reports the IV dilaudid does help with pain and can last 2-3 hours Review of Systems Review of Systems: cv - denies chest pain pulm - denies dyspnea or pleuritic chest pain; no cough - no dysuria Physical Exam Physical Exam: gen - looks more comfortable than yesterday, sitting at side of bed mouth - MMM neck - no JVD heart - RRR, s1 s2, no murmur lungs - CTA b/l abd - soft, ND, BS+; still very tender RUQ and epigastric regions especially the epigastric region; no tenderness b/l lower quadrants; no masses; no peritoneal signs ext - no edema, pulses feet 2+ b/l psych - awake, alert, oriented x 3, no evidence of etoh withdrawal Results & Data Results & Data Vital Signs (Past 12 Hours) Vital Signs Temp Pulse Pulse Pulse Resp BP BP 07/22/24 19:22 37.3 C 74 18 137/85 07/22/24 15:08 36.7 C 70 18 126/66 07/22/24 13:47 47 L 07/22/24 13:11 70 16 148/85 H 07/22/24 12:56 72 16 131/76 07/22/24 12:41 77 16 138/77 07/22/24 12:01 37.1 C 79 18 143/88 H 07/22/24 11:03 36.8 C 81 20 142/81 H 07/22/24 09:22 Pulse Ox O2 Del Method O2 Del Method 07/22/24 19:22 97 Room Air 07/22/24 15:08 96 Room Air 07/22/24 13:47 07/22/24 13:11 95 Room Air 07/22/24 12:56 95 Room Air 07/22/24 12:41 96 Room Air 07/22/24 12:01 95 Room Air 07/22/24 11:03 94 Room Air 07/22/24 09:22 Room Air Laboratory Results Laboratory Results - last 24 hr 07/21/24 07/22/24 05:08 02:16 WBC 6.66 RBC 3.84 L Hgb 12.0 L POC Hgb 14.3 Hct 35.6 L POC Hct 42 MCV 92.7 MCH 31.3 MCHC 33.7 RDW Std Deviation 41.1 RDW Coeff of [place] 12.0 Plt Count 157 MPV 8.6 L POC Sodium 138 Sodium 137 POC Potassium 3.0 L Potassium 4.5 POC Chloride 103 Chloride 105 Carbon Dioxide 29 POC Total CO2 18 L Anion Gap 3 POC Anion Gap 21.0 POC BUN 16 BUN 11 Creatinine 0.65 POC Creatinine 0.8 Est Cr Clr Drug Dosing 112.8 Est GFR ( Amer) 123.4 Est GFR (Non-Af Amer) 106.5 BUN/Creatinine Ratio 16.9 Glucose 75 POC Glucose (other) 141 H Calcium 8.1 L POC Ioniz Calcium Sathish 1.09 L Total Bilirubin 0.6 Direct Bilirubin 0.1 AST 38 ALT 37 Alkaline Phosphatase 55 Total Protein 5.3 L D Albumin 3.4 Lipase 9 L PG Care Time/CCT Total # of Minutes Spent Total Time Spent with Patient: Total time spent is greater than 50% in coordination of care (as documented) at patient's floor/unit and/or counseling patient: Coding Level of Care Code 41132 SUB INP/OBS CARE 3/50MIN Diagnoses Abdominal pain, acute R10.9 Duodenal ulcer K26.9 Acute lactic acidosis E87.21 HTN (hypertension) I10 GERD (gastroesophageal reflux disease) K21.9 Alcohol abuse F10.10 Tobacco dependence F17.[address] scan, colon R93.3 History of gastric ulcer Z87.19 Depression F32.9 DVT prophylaxis Z29.9 Methadone maintenance therapy patient F11.20
--- NOTE | 2024-07-22 20:56 | CT Scan Report ---
Exam(s): CTA ABDOMEN + PELVIS W/WO Contrast IV Amt: 117 ml opti 320 EXAM: CT Angiography Abdomen and Pelvis Without and With Intravenous Contrast CLINICAL HISTORY: Reason for exam: ongoing central abd pain. TECHNIQUE: Axial computed tomographic angiography images of the abdomen and pelvis without and with intravenous contrast. CTDI is 11 mGy and DLP is 644.65 mGy-cm. Automated exposure control was utilized for the study. A dose lowering technique was utilized adhering to the principles of ALARA. MIP reconstructed images were created and reviewed. CONTRAST: Patient received 117 ml opti 320 of IV contrast COMPARISON: CT abdomen pelvis 07/21/2024 FINDINGS: VASCULATURE: Aorta: No acute findings. No abdominal aortic aneurysm. No dissection. Celiac trunk and mesenteric arteries: There has been recanalization of the SMA. Persistent nonocclusive thrombus within the SMA. Previously it appeared to have been occluded. Renal arteries: No acute findings. No occlusion or significant stenosis. Iliac arteries: No acute findings. No occlusion or significant stenosis. Lung bases: Unremarkable. No mass. No consolidation. ABDOMEN: Liver: Unremarkable. No mass. Gallbladder and bile ducts: Unremarkable. No calcified stones. No ductal dilation. Pancreas: Unremarkable. No ductal dilation. No mass. Spleen: Unremarkable. No splenomegaly. Adrenals: Unremarkable. No mass. Kidneys and ureters: Unremarkable. No obstructing stones. No hydronephrosis. No solid mass. Stomach and bowel: Improve mucosal thickening within the colon. No obstruction. PELVIS: Appendix: No findings to suggest acute appendicitis. Bladder: Unremarkable. No stones. No mass. Reproductive: Unremarkable as visualized. ABDOMEN and PELVIS: Intraperitoneal space: Trace free fluid in the pelvis likely reactive. No free air. Bones/joints: No acute fracture. No dislocation. Soft tissues: Unremarkable. Lymph nodes: Unremarkable. No enlarged lymph nodes. IMPRESSION: 1. There has been recanalization of the SMA. Persistent nonocclusive thrombus within the SMA. Previously it appeared to have been occluded. This could be due to an underlying SMA dissection. 2. Improve mucosal thickening within the colon. Electronically signed by: Jonathan Diaz MD 07/22/24 20:56 PM
--- NOTE | 2024-07-22 21:02 | CT Scan Report ---
Exam(s): CTA CHEST W/WO Contrast IV Amt: 117 ml opti 320 EXAM: CT Angiography Chest Without and With Intravenous Contrast CLINICAL HISTORY: Reason for exam: upper abd pain w/ radiation to back. TECHNIQUE: Axial computed tomographic angiography images of the chest without and with intravenous contrast. CTDI is 17.94 mGy and DLP is 1099.5 mGy-cm. Automated exposure control was utilized for the study. A dose lowering technique was utilized adhering to the principles of ALARA. MIP reconstructed images were created and reviewed. CONTRAST: Patient received 117 ml opti 320 of IV contrast COMPARISON: No relevant prior studies available. FINDINGS: Pulmonary arteries: Unremarkable. No pulmonary embolism. Aorta: No acute findings. Normal caliber. No dissection. 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 Lungs: Atelectasis within the lower lobes. Pleural space: Trace pericardial effusions. No pneumothorax. Heart: Borderline cardiomegaly. Bones/joints: No acute fracture. Soft tissues: Unremarkable. Lymph nodes: Unremarkable. IMPRESSION: 1. No acute aortic syndrome or pulmonary embolism. 2. 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 Communications: Verify Receipt Electronically signed by: Jonathan Diaz MD 07/22/24 21:01 PM
[2024-07-22] MEDS ORDERED: Heparin IV Adult Wt-Based Standard *NO* INITIAL Bolus Protocol IV STA (22:47)
--- NOTE | 2024-07-22 23:08 | Communication Note ---
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 Spoke with Dr. Blandon who recommends starting heparin gtt and transfer to tertiary care for stent vs surgery. Pt accepted at [facility], pending transfer.
[2024-07-22] MEDS: HEPARIN SODIUM/DEXTROSE 25,000 UNITS/500 ML BAG IV SCH (23:16)
[2024-07-22 23:43] LABS: Basophils # (auto) 0.04 K/uL (0.00-0.20); Basophils % (auto) 0.7 %; Eosinophils # (auto) 0.04 K/uL (0.00-0.50); Eosinophils % (auto) 0.7 %; Hemoglobin 12.3 g/dl (14.0-18.0); Immature Granulocytes # (auto) 0.02 K/uL (0.01-0.20); Immature Granulocytes % (auto) 0.4 %; Lymphocytes # (auto) 1.17 K/uL (1.20-3.40); Lymphocytes % (auto) 20.5 %; Mean Corpuscular Hemoglobin 30.4 pg (25.0-34.0); Mean Corpuscular Hgb Conc 33.2 g/dL (32.0-36.0); Mean Corpuscular Volume 91.6 fL (80.0-100.0); Monocytes # (auto) 0.79 K/uL (0.11-0.59); Monocytes % (auto) 13.9 %; Neutrophils # (auto) 3.64 K/uL (1.40-6.50); Neutrophils % (auto) 63.8 %; Platelet Count 172 K/uL (130-400); RDW Coefficient of Variation 11.7 % (11.5-14.5); RDW Standard Deviation 39.6 fL (36.4-46.3); Red Blood Count 4.04 M/uL (4.70-6.10)
[2024-07-22 23:57] LABS: Partial Thromboplastin Time 26 Seconds (21-31); Prothrombin Time 10.9 Seconds (9.0-12.0)
--- NOTE | 2024-07-23 04:30 | Discharge Summary ---
Date of Service July 23, 2024 Admission HPI Per Admitting Provider 59yo male with long-standing alcoholism, prior h/o Hepatitis C, HTN, tobacco dependence, gastric ulcer in the early , and anxiety/depression presents from home after waking up at ~0400 this morning with severe upper abdominal pain. The pain has been constant since it started. It is radiating to the low back. Denies any pain in the lower quadrants. Denies nausea. Denies vomiting or hematemesis. He reports a few days of loose stool. No melena. He does mention seeing some bright red blood with wiping. He attributes this to straining at stool. He does have a history of hemorrhoids. Despite multiple doses of fentanyl IV in the ER he reports ongoing severe pain. He denies any episodic abdominal pain over the last few weeks. His last meal was 07/20 in the evening when he consumed crab legs & 1 glass of wine. He reports having stopped drinking alcohol about 1 week ago. Typically drinks 1 6-pack of beer/day. The glass of wine was the first etoh beverage since stopping beer consumption 1 week ago. He denies history of alcohol withdrawal, but his record clearly documents past history of shakes/withdrawal symptoms with alcohol cessation. Denies any current narcotic usage at home. He continues to smoke <1/2 pack of tobacco daily. Meds given in ER -- pepcid IV, fentanyl 150mcg in total, LR bolus, NS bolus, zofran, banana bag, protonix IV Principal Diagnosis penetrating ulcer/pseudoaneurysm within the proximal SMA Discharge Data Allergies Allergy/AdvReac Type Severity Reaction Status Date / Time tetracycline Allergy Unknown unknown Verified 03/09/23 14:16 Consultations 07/21/24 06:16 ED Decision to Admit Stat 07/21/24 09:51 Consult Gastroenterology Routine 07/21/24 10:20 Consult General Surgery Routine 07/22/24 22:27 Consult Vascular Surgery Routine Procedures Performed Operation Date: 07/22/24 16:30 Actual Procedures p Esophagogastroduodenoscopy - China Hernandez Jr, MD Ordered Studies 07/21/24 04:57 CT abd pelvis IV con only Stat 07/21/24 05:07 CT angio chest PE protocol Stat 07/21/24 08:00 US gallbladder Stat 07/22/24 19:03 CTA abd pelvis wo/w con [CT angio abd pelvis wo/w con] Routine CTA chest dissec wo/w con [CT angio chest dissec wo/w con] Routine Laboratory Results WBC 5.70 K/ul (4.8-10.8) 07/22/24 23:03 RBC 4.04 M/uL (4.70-6.10) L 07/22/24 23:03 Hgb 12.3 g/dl (14.0-18.0) L 07/22/24 23:03 POC Hgb 14.3 g/dl (14.0-18.0) 07/21/24 05:08 Hct 37.0 % (42.0-52.0) L 07/22/24 23:03 POC Hct 42 % (42-52) 07/21/24 05:08 MCV 91.6 fL (80.0-100.0) 07/22/24 23:03 MCH 30.4 pg (25.0-34.0) 07/22/24 23:03 MCHC 33.2 g/dL (32.0-36.0) 07/22/24 23:03 RDW Std Deviation 39.6 fL (36.4-46.3) 07/22/24 23:03 RDW Coeff of Augustus 11.7 % (11.5-14.5) 07/22/24 23:03 Plt Count 172 K/uL (130-400) 07/22/24 23:03 MPV 9.0 fL (9.4-12.4) L 07/22/24 23:03 Immature Gran % (Auto) 0.4 % 07/22/24 23:03 Neut % (Auto) 63.8 % 07/22/24 23:03 Lymph % (Auto) 20.5 % 07/22/24 23:03 Carson % (Auto) 13.9 % 07/22/24 23:03 Eos % (Auto) 0.7 % 07/22/24 23:03 Baso % (Auto) 0.7 % 07/22/24 23:03 Neut # (Auto) 3.64 K/uL (1.40-6.50) 07/22/24 23:03 Lymph # (Auto) 1.17 K/uL (1.20-3.40) L 07/22/24 23:03 Carson # (Auto) 0.79 K/uL (0.11-0.59) H 07/22/24 23:03 Eos # (Auto) 0.04 K/uL (0.00-0.50) 07/22/24 23:03 Baso # (Auto) 0.04 K/uL (0.00-0.20) 07/22/24 23:03 Immature Gran # (Auto) 0.02 K/uL (0.01-0.20) 07/22/24 23:03 PT 10.9 Seconds (9.0-12.0) 07/22/24 23:03 INR 1.0 (0.9-1.1) 07/22/24 23:03 APTT 26 Seconds (21-31) 07/22/24 23:03 PTT Ratio 1.0 07/22/24 23:03 POC Sodium 138 mmol/L (135-144) 07/21/24 05:08 Sodium 137 mmol/L (136-145) 07/22/24 02:16 POC Potassium 3.0 mmol/L (3.3-5.0) L 07/21/24 05:08 Potassium 4.5 mmol/L (3.5-5.1) 07/22/24 02:16 POC Chloride 103 mmol/L (101-112) 07/21/24 05:08 Chloride 105 mmol/L (98-107) 07/22/24 02:16 Carbon Dioxide 29 mmol/L (21-32) 07/22/24 02:16 POC Total CO2 18 mmol/L (24-31) L 07/21/24 05:08 Anion Gap 3 (3-11) 07/22/24 02:16 POC Anion Gap 21.0 mmol/L (16-25) 07/21/24 05:08 POC BUN 16 mg/dl (7-18) 07/21/24 05:08 BUN 11 mg/dl (6-23) 07/22/24 02:16 Creatinine 0.65 mg/dl (0.6-1.4) 07/22/24 02:16 POC Creatinine 0.8 mg/dl (0.6-1.3) 07/21/24 05:08 Est Cr Clr Drug Dosing 112.8 ml/min 07/22/24 02:16 Est GFR ( Amer) 123.4 ml/min 07/22/24 02:16 Est GFR (Non-Af Amer) 106.5 ml/min 07/22/24 02:16 BUN/Creatinine Ratio 16.9 (10-20) 07/22/24 02:16 Glucose 75 mg/dl (70-99(Fasting)) 07/22/24 02:16 POC Glucose (other) 141 mg/dl (70-99) H 07/21/24 05:08 Lactate 1.5 mmol/L (0.4-2.0) 07/21/24 14:10 Calcium 8.1 mg/dl (8.6-10.3) L 07/22/24 02:16 POC Ioniz Calcium Sathish 1.09 mmol/l (1.12-1.32) L 07/21/24 05:08 Magnesium 2.0 mg/dl (1.7-2.4) 07/21/24 05:07 Total Bilirubin 0.6 mg/dl (0.2-1.0) 07/22/24 02:16 Direct Bilirubin 0.1 mg/dl (0-0.2) 07/22/24 02:16 AST 38 U/L (13-39) 07/22/24 02:16 ALT 37 U/L (7-52) 07/22/24 02:16 Alkaline Phosphatase 55 U/L (34-104) 07/22/24 02:16 Troponin I High Sens 3.5 pg/ml (0-20) 07/21/24 05:07 Total Protein 5.3 gm/dl (6.0-8.3) L D 07/22/24 02:16 Albumin 3.4 gm/dl (3.4-5.0) 07/22/24 02:16 Globulin 2.5 gm/dl (2.5-4.0) 07/21/24 05:07 Albumin/Globulin Ratio 1.8 (0.9-2) 07/21/24 05:07 Lipase 9 U/L (11-82) L 07/22/24 02:16 Urine Color Yellow 07/21/24 11:43 Urine Appearance Clear (Clear) 07/21/24 11:43 Urine pH 5.5 (4.5-7.5) 07/21/24 11:43 Ur Specific [place] 1.037 (1.000-1.030) H 07/21/24 11:43 Urine Protein Negative (Negative) 07/21/24 11:43 Urine Glucose (UA) Negative (Negative) 07/21/24 11:43 Urine Ketones 1+ (Negative) H 07/21/24 11:43 Urine Blood Negative (Negative) 07/21/24 11:43 Urine Nitrite Negative (Negative) 07/21/24 11:43 Urine Bilirubin Negative (Negative) 07/21/24 11:43 Urine Urobilinogen Negative (Negative) 07/21/24 11:43 Ur Leukocyte Esterase Negative (Negative) 07/21/24 11:43 Stl C. cayetanensis PCR Not Detected (NotDetected) 07/21/24 11:43 Stool Rotavirus A PCR Not Detected (NotDetected) 07/21/24 11:43 Stl Adenov F 40/41 PCR Not Detected (NotDetected) 07/21/24 11:43 Stool Astrovirus (PCR) Not Detected (NotDetected) 07/21/24 11:43 Stool Campylobacter PCR Not Detected (NotDetected) 07/21/24 11:43 Stool Cryptosporidium PCR Not Detected (NotDetected) 07/21/24 11:43 Stl E.coli Shiga Tox PCR Not Detected (NotDetected) 07/21/24 11:43 Stl Enterotoxigenic E PCR Not Detected (NotDetected) 07/21/24 11:43 Stool EPEC (PCR) Not Detected (NotDetected) 07/21/24 11:43 Stool EAEC (PCR) Not Detected (NotDetected) 07/21/24 11:43 Stl E. histolytica PCR Not Detected (NotDetected) 07/21/24 11:43 Stool Giardia Lamblia PCR Not Detected (NotDetected) 07/21/24 11:43 Stool Salmonella PCR Not Detected (NotDetected) 07/21/24 11:43 Stool Sapovirus (PCR) Not Detected (NotDetected) 07/21/24 11:43 Stl P. shigelloides PCR Not Detected (NotDetected) 07/21/24 11:43 Stl Shigella/EIEC PCR Not Detected (NotDetected) 07/21/24 11:43 St Y.enterocolitica PCR Not Detected (NotDetected) 07/21/24 11:43 Stool Vibrio (PCR) Not Detected (NotDetected) 07/21/24 11:43 Stl Vibrio cholerae PCR Not Detected (NotDetected) 07/21/24 11:43 Stl Norovirus GI/GII PCR Not Detected (NotDetected) 07/21/24 11:43 Urine Opiates Screen Pos (Neg) H 07/21/24 11:43 Ur Methadone, Qual Pos (Neg) H 07/21/24 11:43 Urine Fentanyl Screen Pos (Neg) H 07/21/24 11:43 Urine Barbiturates Neg (Neg) 07/21/24 11:43 Ur Phencyclidine (PCP) Neg (Neg) 07/21/24 11:43 U Amphetamin/Meth Scrn Neg (Neg) 07/21/24 11:43 MDMA (Ecstasy) Screen Neg (Neg) 07/21/24 11:43 U Benzodiazepines Scrn Neg (Neg) 07/21/24 11:43 Ur Cocaine Metabolite Neg (Neg) 07/21/24 11:43 U Marijuana (THC) Screen Neg (Neg) 07/21/24 11:43 Ethyl Alcohol mg/dL 28.9 mg/dl (<10.0) H 07/21/24 05:07 Impressions Abdomen/Pelvis CT 07/21/24 04:57 Exam(s): CT ABDOMEN + PELVIS With Contrast IV Amt: 119 ml opti 320 EXAM: CT Abdomen and Pelvis With Intravenous Contrast CLINICAL HISTORY: Reason for exam: severe mid abd pain, hep C, etoh. TECHNIQUE: Axial computed tomography images of the abdomen and pelvis with intravenous contrast. Automated exposure control was utilized for the study. A dose lowering technique was utilized adhering to the principles of ALARA. CONTRAST: Patient received 119 ml opti 320 of IV contrast COMPARISON: 01/22/2019. FINDINGS: ABDOMEN: Liver: The liver is enlarged and of diffuse decreased attenuation Gallbladder and bile ducts: There are gallstones noted within the gallbladder.. No ductal dilation. Pancreas: No mass. No ductal dilation. Spleen: No splenomegaly. Adrenals: No mass. Kidneys and ureters: . No solid mass. No hydronephrosis. Stomach and bowel: There is air and fluid within the stomach. There is air, fluid and stool noted in the colon.. There appears to be thickening of the wall of the proximal ascending colon PELVIS: Appendix: No findings to suggest acute appendicitis. Bladder: No Calculi are noted within the bladder. Reproductive: Unremarkable as visualized. ABDOMEN and PELVIS: Intraperitoneal space: No free air. No significant fluid collection. There are postoperative changes in the pelvis. Bones/joints: There are mild degenerative changes in the spine.. Soft tissues: Unremarkable. Vasculature: No abdominal aortic aneurysm. Lymph nodes: . No enlarged lymph nodes. IMPRESSION: There appears to be thickening of the wall of the proximal ascending colon. This may be due to under distention. Cannot exclude colitis. Cholelithiasis. The liver is enlarged and of diffuse decreased attenuation which may be due to fatty infiltration and/or hepatocellular disease. Electronically signed by: Hesham Santos MD 07/21/24 06:13 AM Chest X-Ray 07/21/24 05:07 XR chest 1V portable CLINICAL HISTORY: severe upper abd pain TECHNIQUE: Single frontal radiograph of the chest was obtained. Comparison: Comparison is made to chest radiograph 03/09/2023 FINDINGS: No lines and tubes are seen. The cardiomediastinal silhouette is normal. The lungs are clear. No evidence of pleural effusion or pneumothorax. IMPRESSION: No acute chest disease. ACT 112: Negative or not required by law. Electronically signed by: Vick Reno M.D. 07/21/2024 8:34 AM Gallbladder Ultrasound 07/21/24 08:00 US gallbladder CLINICAL HISTORY: gallstones, severe abd pain; ro cholecystitis TECHNIQUE: Multiple real-time sonographic images of the right upper quadrant were obtained. Comparison: Comparison is made to CT abdomen pelvis 07/21/2024 FINDINGS: The liver is diffusely echogenic in appearance with poor ultrasound penetration, with normal contour, which is consistent with fatty infiltration. No focal mass lesions are seen. No intrahepatic ductal dilatation is seen. Linear hyperechoic foci with posterior shadowing are identified layering dependently within the gallbladder, which are consistent with gallstones. The gallbladder wall is not thickened. There is no pericholecystic fluid present. A sonographic Weeks's sign was not elicited by the oracle architect. The common duct measures 0.4 cm in diameter at the level of the hepatic artery. The visualized portions of the pancreas appear normal. The right kidney shows normal echogenicity, cortical thickness and renal contour. The right kidney shows no evidence of hydronephrosis or mass. No ascites or free fluid is seen in Barone's pouch. IMPRESSION: 1. Hepatic steatosis. 2. Cholelithiasis without cholecystitis. ACT 112: Negative or not required by law. Electronically signed by: Vick Reno M.D. 07/21/2024 9:16 AM Abdomen/Pelvis CTA 07/22/24 19:03 Exam(s): CTA ABDOMEN + PELVIS W/WO Contrast IV Amt: 117 ml opti 320 EXAM: CT Angiography Abdomen and Pelvis Without and With Intravenous Contrast CLINICAL HISTORY: Reason for exam: ongoing central abd pain. TECHNIQUE: Axial computed tomographic angiography images of the abdomen and pelvis without and with intravenous contrast. CTDI is 11 mGy and DLP is 644.65 mGy-cm. Automated exposure control was utilized for the study. A dose lowering technique was utilized adhering to the principles of ALARA. MIP reconstructed images were created and reviewed. CONTRAST: Patient received 117 ml opti 320 of IV contrast COMPARISON: CT abdomen pelvis 07/21/2024 FINDINGS: VASCULATURE: Aorta: No acute findings. No abdominal aortic aneurysm. No dissection. Celiac trunk and mesenteric arteries: There has been recanalization of the SMA. Persistent nonocclusive thrombus within the SMA. Previously it appeared to have been occluded. Renal arteries: No acute findings. No occlusion or significant stenosis. Iliac arteries: No acute findings. No occlusion or significant stenosis. Lung bases: Unremarkable. No mass. No consolidation. ABDOMEN: Liver: Unremarkable. No mass. Gallbladder and bile ducts: Unremarkable. No calcified stones. No ductal dilation. Pancreas: Unremarkable. No ductal dilation. No mass. Spleen: Unremarkable. No splenomegaly. Adrenals: Unremarkable. No mass. Kidneys and ureters: Unremarkable. No obstructing stones. No hydronephrosis. No solid mass. Stomach and bowel: Improve mucosal thickening within the colon. No obstruction. PELVIS: Appendix: No findings to suggest acute appendicitis. Bladder: Unremarkable. No stones. No mass. Reproductive: Unremarkable as visualized. ABDOMEN and PELVIS: Intraperitoneal space: Trace free fluid in the pelvis likely reactive. No free air. Bones/joints: No acute fracture. No dislocation. Soft tissues: Unremarkable. Lymph nodes: Unremarkable. No enlarged lymph nodes. IMPRESSION: 1. There has been recanalization of the SMA. Persistent nonocclusive thrombus within the SMA. Previously it appeared to have been occluded. This could be due to an underlying SMA dissection. 2. Improve mucosal thickening within the colon. Electronically signed by: Jonathan Diaz MD 07/22/24 20:56 PM Chest CTA 07/22/24 19:03 CR Exam(s): CTA CHEST W/WO Contrast IV Amt: 117 ml opti 320 EXAM: CT Angiography Chest Without and With Intravenous Contrast CLINICAL HISTORY: Reason for exam: upper abd pain w/ radiation to back. TECHNIQUE: Axial computed tomographic angiography images of the chest without and with intravenous contrast. CTDI is 17.94 mGy and DLP is 1099.5 mGy-cm. Automated exposure control was utilized for the study. A dose lowering technique was utilized adhering to the principles of ALARA. MIP reconstructed images were created and reviewed. CONTRAST: Patient received 117 ml opti 320 of IV contrast COMPARISON: No relevant prior studies available. FINDINGS: Pulmonary arteries: Unremarkable. No pulmonary embolism. Aorta: No acute findings. Normal caliber. No dissection. 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 Lungs: Atelectasis within the lower lobes. Pleural space: Trace pericardial effusions. No pneumothorax. Heart: Borderline cardiomegaly. Bones/joints: No acute fracture. Soft tissues: Unremarkable. Lymph nodes: Unremarkable. IMPRESSION: 1. No acute aortic syndrome or pulmonary embolism. 2. 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 Communications: Verify Receipt Electronically signed by: Jonathan Diaz MD 07/22/24 21:01 PM Hospital Course (1) Abdominal pain, acute: (2) Duodenal ulcer: (3) Methadone maintenance therapy patient: (4) Depression: (5) Acute lactic acidosis: (6) HTN (hypertension): (7) GERD (gastroesophageal reflux disease): (8) Alcohol abuse: Plan 59yo male with long-standing alcoholism, prior h/o Hepatitis C, HTN, tobacco dependence, gastric ulcer in the early 1999s, and anxiety/depression that presenting with abdominal pain. Abdominal pain, acute: - Intially work-up with CT abd/pelvis with gallstones & thickening of the trans verse colon, RUQ u/s with gallstones but no features of acute cholecystitis. - EGD with small superficial duodenal ulcer - CTA A&P with penetrating ulcer/pseudoaneurysm within the proximal SMA with s urrounding intramural hematoma which reduces the lumen of the proximal SMA by approximately 70%. - Spoke with Dr. Blandon; vascular surgery. Recommend started heparin gtt and transfer to tertiary care facility for stent vs surgery. Pt was accepted at [facility] [place]. - Hemodynamically stable at time of d/c with pain well controlled - Plan: Transfer [facility] [place] for further management, continue heparin gtt, Dilaudid 0 .5mg q3 prn for pain Acute lactic acidosis: Present on admission with lactate= 4.9, down to 1.5 with IVF HTN (hypertension): Cont meto succ daily Alcohol abuse: Records indicate heavy beer consumption. He reports no beer in 1 week but he did drink wine on 07/20. Alcohol level <50 on admission Records also indicate past h/o alcohol withdrawal. AWSS has been 0, no signs of withdrawal and has not required any symptom triggered Ativan Plan: AWSS protocol with symptom triggered Ativan, IV thiamine/folate/multivi tamin. Was started on gabapentin taper. Load with 1200mg on 07/21 with plan for 600mg q6H on 07/22, 600mg q12H 07/23, 600mg 07/24. Tobacco dependence: Nicoderm patch 14mg/24 hours. Methadone Maintenance Therapy Pt - 51mg methadone daily -> takes at [facility] and confirm by hospitalist this admission History of gastric ulcer: - again noted on EGD this admission 07/22 - one non-bleeding superficial duodenal ulcer in duodenal bulb, 3mm in largest dimension - plan to continue PPI Depression: Cont nortriptyline daily DVT prophylaxis: Hold off on chemical means at this time in the event he needs a procedure next 24 hours Total Time Total Time Spent Total Time Spent (In Minutes): See attending attestation Discharge Plan Discharge Items Patient Disposition: Transfer Acute Care Hospital Reason For Visit: abdominal pain, lactic acidosis Discharge Diagnosis: ulcer/pseudoaneurysm within the proximal SMA Condition on Discharge: Fair Activity: Per Instructions section Non-emergency contact: Primary Care Provider Call non-emergency contact if: you have any medication questions Follow-up/Referrals: Miguelangel Mcdonald MD [Primary Care Provider] - Diet: Nothing by Mouth Addtl Attending Provider Instructions: 59yo male with long-standing alcoholism, prior h/o Hepatitis C, HTN, tobacco dependence, gastric ulcer in the early , and anxiety/depression that presenting with abdominal pain. Abdominal pain, acute: - Intially work-up with CT abd/pelvis with gallstones & thickening of the transverse colon, EGD with small superficial duodenal ulcer - CTA A&P with penetrating ulcer/pseudoaneurysm within the proximal SMA with surrounding intramural hematoma which reduces the lumen of the proximal SMA by approximately 70%. - Spoke with Dr. Blandon; vascular surgery. Recommend started heparin gtt and transfer to tertiary care facility for stent vs surgery. Pt was accepted at [facility]. - Hemodynamically stable at time of d/c with pain well controlled - Plan: Transfer [facility] for further management, continue heparin gtt, Dilaudid 0.5mg q3 prn for pain Acute lactic acidosis: Present on admission with lactate= 4.9, down to 1.5 with IVF HTN (hypertension): Cont meto succ daily Alcohol abuse: Records indicate heavy beer consumption. He reports no beer in 1 week but he did drink wine on 07/20. Alcohol level <50 on admission Records also indicate past h/o alcohol withdrawal. AWSS has been 0, no signs of withdrawal and has not required any symptom triggered Ativan Plan: AWSS protocol with symptom triggered Ativan, IV thiamine/folate/multivitamin. Was started on gabapentin taper. Load with 1200mg on 07/21 with plan for 600mg q6H on 07/22, 600mg q12H 07/23, 600mg 07/24. Tobacco dependence: Nicoderm patch 14mg/24 hours. Methadone Maintenance Therapy Pt - 51mg methadone daily -> takes at [facility] History of gastric ulcer: - again noted on EGD this admission Depression: Cont nortriptyline daily DVT prophylaxis: Hold off on chemical means at this time in the event he needs a procedure next 24 hours Pending Studies at Discharge: No Stand-Alone Forms: My [employer] Skilled Items Patient informed of condition?: Yes DNR: No Discharge Level of Care: Other Communicable Disease: No Discharge Prognosis: Stable Lines: Peripheral IV Urinary Catheter: No Medications and DC Order Prescriptions: New methadone 10 mg/5 mL Solution 51 mg PO QAM 30 Days Qty: 765 0RF nortriptyline 25 mg Capsule 50 mg PO HS Qty: 30 0RF Patient's Own Controlled Med 1 1 ea Not Applicable DAILY@0900 Qty: 30 0RF gabapentin 600 mg Tablet 600 mg PO Q12H Qty: 30 0RF nicotine 7 mg/24 hr Patch 24 Hour 1 patch transdermal QAM 30 Days Qty: 30 0RF Continued multivitamin Tablet 1 tab PO QAM Rx Instructions: otc unable to verify melatonin 3 mg Tablet 0 mg PO HS PRN (Reason: Sleep) Rx Instructions: otc unable to verify metoprolol succinate 50 mg tablet extended release 24 hr 50 mg PO QAM Qty: 30 0RF Held omega [id number]-fish oil 1,200 (144-216) mg Capsule 1 cap PO QAM Hold Instructions: Held on admission Rx Instructions: otc unable to verify Unisom (doxylamine) 25 mg Tablet 25 mg PO HS PRN (Reason: Sleep) Hold Instructions: Held on admission Rx Instructions: otc unable to verify gabapentin 100 mg capsule 200 mg PO BID Hold Instructions: Held on admission rosuvastatin 10 mg tablet 20 mg PO DAILY Hold Instructions: Held on admission Discontinued nortriptyline 50 mg capsule 50 mg PO HS Admission Data Admit Date/Time: 07/21/24 07:27 Attending Provider: Nilda Del Rosario Admit Provider: Dominic Nichols Primary Care Provider: Miguelangel Mcdonald Other Providers: Luis Riggs; China Hernandez Jr; Yo Bailey; Gene Blandon Resident Activity Tracking Resident Involvement: Resident Care Provided Care Provided: Adult Hospital Medicine
--- NOTE | 2024-07-23 06:01 | Electrocardiogram Report ---
Test Reason : Blood Pressure : */* mmHG Vent. Rate : 50 BPM Atrial Rate : * BPM P-R Int : * ms QRS Dur : 90 ms QT Int : 484 ms P-R-T Axes : * 10 24 degrees QTcB Int : 441 ms Poor data quality, interpretation may be adversely affected Sinus bradycardia Abnormal ECG When compared with ECG of 09-Mar-2023 10:22, Sinus bradycardia has replaced Sinus rhythm Vent. rate has decreased by 43 bpm QRS axis Shifted right Confirmed by Feroz Haile ([id number]) on 07/23/2024 6:01:32 AM Referred By: REFERRED SELF Confirmed By: Feroz Haile
[2024-07-23 06:44] LABS: ANTI-Xa, UFH(UnfractionatedHep 0.44 IU/ml (0.3-0.7)
[2024-07-23] MEDS ORDERED: METHADONE ORAL SOLN 2 MG/ML PO STA (07:53)
[2024-07-23] MEDS ORDERED: GABAPENTIN 600 MG TAB PO SCH (10:00)
--- NOTE | 2024-07-24 14:39 | Consultation ---
Date of Consultation July 24, 2024 History of Present Illness Attending Physician: Nilda Del Rosario MD History of Present Illness Dicharged before being seen Allergies Allergy/AdvReac Type Severity Reaction Status Date / Time tetracycline Allergy Unknown unknown Verified 03/09/23 14:16 Home Medications Medication Instructions Recorded Confirmed Type multivitamin 1 tab PO QAM 09/03/18 07/21/24 History omega 8-tbu-osn-fish oil 1,200 mg 1 cap PO QAM 09/03/18 07/21/24 History (144 mg-216 mg) capsule doxylamine succinate 25 mg tablet 25 mg PO HS PRN Sleep 09/30/21 07/21/24 History (Unisom (doxylamine)) melatonin 3 mg tablet 0 mg PO HS PRN Sleep 09/30/21 07/21/24 History metoprolol succinate 50 mg 50 mg PO QAM #30 tabs 09/30/21 07/21/24 Rx tablet,extended release 24 hr gabapentin 100 mg capsule 200 mg PO BID 03/09/23 07/21/24 History rosuvastatin 10 mg tablet 20 mg PO DAILY 03/09/23 07/21/24 History Patient's Own Controlled Med 1 1 ea Not Applicable DAILY@0900 #30 07/23/24 Rx units gabapentin 600 mg tablet 600 mg PO Q12H #30 tabs 07/23/24 Rx methadone 10 mg/5 mL oral solution 51 mg (25.5 mL) PO QAM 30 days 07/23/24 Rx #765 mL nicotine 7 mg/24 hr daily 1 patch transdermal QAM 30 days 07/23/24 Rx transdermal patch #30 ea nortriptyline 25 mg capsule 50 mg (2 x 25 mg) PO HS #30 caps 07/23/24 Rx Patient History Medical History Hepatitis C diagnosed in 1986; no longer has Alcoholism Gastritis Alcohol withdrawal Kidney stones GERD (gastroesophageal reflux disease) Idiopathic thrombocytopenia hx of, not currently Hypertension Surgical History History of colonoscopy History of esophagogastroduodenoscopy (EGD) History of inguinal hernia repair, bilateral History of tooth extraction wisdom teeth Family History Family/Other Family history of diabetes mellitus maternal uncle Grandmother Family hx of colon cancer maternal Mother COPD (chronic obstructive pulmonary disease) Brother Bipolar disorder Brother Coronary heart disease Social History Smoking Status: Current every day smoker Tobacco Type: Cigarettes Cigarettes Per Day: 7 a day; Second Hand Exposure: No; Do You Dip or Chew Tobacco: No; Hx Alcohol Use: Yes Alcohol type: beer and wine Alcohol Intake Frequency: 4 or More x per/Week Hx Substance Use: No Preferred Language: [place]ian Communication Ability: Effective Nursing Care Attendant Required: No Beliefs That Will Affect Care: None marital status: Single Current Living Situation: Family Current Living Situation Comment: lives with mother current occupational status: unemployed How many Children do You have: 0 Feels Safe at Home: Yes Assistive Devices: None
[2024-07-24 14:48] LABS: Codeine Urine NEGATIVE ng/mL (<50); Fentanyl, Urine 9.2 ng/mL (<0.5); Hydrocodone Urine NEGATIVE ng/mL (<50); Hydromor Urine NEGATIVE ng/mL (<50); Methadone, Ur Metabolite 4030 ng/mL (<100); Methadone, Ur Verification 7580 ng/mL (<100); Morphine Urine NEGATIVE ng/mL (<50); Norfentanyl, Urine 5.9 ng/mL (<0.5); Norhydrocodone Conf Ur NEGATIVE ng/mL (<50); Noroxycodone Urine 1640 ng/mL (<50); Oxycodone Urine 2170 ng/mL (<50); Oxymorph Urine 149 ng/mL (<50); medMATCH Fentanyl, Urine DNR; medMATCH Norfentanyl, Urine DNR
[2024-07-24] MEDS ORDERED: GABAPENTIN 600 MG TAB PO SCH (22:00)
== END 2024-07-23 07:59 | disposition short-term general hospital (02) ==
LOC: ED 04:47 → INTOOBSV 07:27 → SUATTDRO 07:27 → EDINP 07:27 → 2S 07-22 00:55